=== PATIENT | female | born 1960 | race Caucasian/White ===

== ENCOUNTER 2020-05-28 00:01 | Inpatient (IN) ==
[2020-05-28] MEDS ORDERED: 0.9 % Sodium Chloride 1,000 ML IVC ONE ×2 (00:22→03:41)
[2020-05-28] MEDS ORDERED: *HR* FentaNYL (PF) 100 MCG/2 ML VIAL IVP ONE ×2 (00:22→03:41)
[2020-05-28 01:29] LABS: Bilirubin,Urine Negative (Negative); Blood,Urine Negative (Negative); Clarity,Urine Clear (Clear); Color,Urine Light-Yellow (Yellow); Glucose,Urine (UA) Normal (Normal); Ketones,Urine Negative (Negative); Leukocyte Esterase,Urine Negative (Negative); Nitrite,Urine Negative (Negative); PH,Urine 6.5 pH Units (5.0-8.0); Protein,Urine Negative (Neg-Trace); Specific Gravity,Urine 1.009 (1.010-1.025); Urobilinogen,Urine Normal (Normal)
[2020-05-28 01:30] LABS: Adenovirus Not Detected (Not Detect); Bordetella Pertussis Not Detected (Not Detect); Chlamydophila pneumoniae Not Detected (Not Detect); Coronavirus 229E Not Detected (Not Detect); Coronavirus HKU1 Not Detected (Not Detect); Coronavirus NL63 Not Detected (Not Detect); Coronavirus OC43 Not Detected (Not Detect); Human Metapneumovirus Not Detected (Not Detect); Human Rhinovirus/Enterovirus Not Detected (Not Detect); Influenza A Subtype 2009 H1 Not Detected (Not Detect); Influenza B Not Detected (Not Detect); Mycoplasma pneumoniae Not Detected (Not Detect); Parainfluenza Virus 1 Not Detected (Not Detect); Parainfluenza Virus 2 Not Detected (Not Detect); Parainfluenza Virus 3 Not Detected (Not Detect); Parainfluenza Virus 4 Not Detected (Not Detect); Respiratory Syncytial Virus Not Detected (Not Detect); SARS-CoV-2 Not Detected (Not Detect)
[2020-05-28 01:40] LABS: Amphetamine Screen,Urine Negative ng/mL (Cutoff=1000); Barbiturate Screen,Urine Negative ng/mL (Cutoff=200); Benzodiazepines Screen,Urine Negative ng/mL (Cutoff=200); Cannabinoid Screen,Urine Positive ng/mL (Cutoff = 50); Cocaine Screen,Urine Negative ng/mL (Cutoff= 300); Opiate Screen,Urine Negative ng/mL (Cutoff=300); Phencyclidine Screen,Urine Negative ng/mL (Cutoff=25)
[2020-05-28 02:43] LABS: Hematocrit 40.1 % (35.3-44.9); Mean Corpuscular HGB Conc 33.9 g/dL (31.6-35.5); Mean Corpuscular Hemoglobin 34.3 pg (28.0-33.3); Mean Corpuscular Volume 101.3 fL (83.0-100.0); Mean Platelet Volume 9.6 fL (9.4-12.4); Platelet Count 351 K/mcL (140-400); Red Blood Count 3.96 M/mcL (3.82-4.97); Red Cell Distribution Width 15.1 % (11.5-14.5)
[2020-05-28 02:45] LABS: Hemoglobin 13.6 g/dL (11.5-15.4); White Blood Count 9.4 K/mcL (4.3-11.1)
[2020-05-28 02:53] LABS: Prothrombin Time 11.2 Seconds (9.4-12.1)
[2020-05-28 02:56] LABS: Activated Partial Thrombo Time 26.5 Seconds (26.0-36.0)
[2020-05-28 03:04] LABS: Alanine Aminotransferase 113 Units/L (7-52); Albumin 3.1 g/dL (3.5-5.7); Albumin/Globulin Ratio 1.1 (1.1-2.2); Alkaline Phosphatase 251 Units/L (34-104); Aspartate Amino Transferase 325 Units/L (13-39); BUN/Creatinine Ratio 4 (6-26); Bilirubin,Total 0.6 mg/dL (0.3-1.0); Blood Urea Nitrogen 2 mg/dL (6-20); Calcium 8.2 mg/dL (8.6-10.3); Carbon Dioxide 28 mEq/L (23-29); Chloride 98 mEq/L (98-107); Creatine Kinase 81 Units/L (30-223); Ethanol 203 mg/dL (Less than 10); Globulin 2.7 g/dL (2.4-3.5); Glucose 83 mg/dL (70-105); Osmolality,Calculated 283 (280-300); Potassium 3.7 mEq/L (3.5-5.1); Sodium 139 mEq/L (136-145); Total Protein 5.8 g/dL (6.4-8.9); Troponin I < 0.03 ng/mL (< 0.04); eGFR For African Americans > 60 (> 60); eGFR For Non-African Americans > 60 (> 60)
[2020-05-28 03:07] LABS: Basophils # 0.1 K/mcL (0.0-0.2); Basophils % 0.6 %; Eosinophils % 0.2 %; Immature Granulocytes % 0.2 % (0-4); Lymphocytes % 21.7 %; Monocytes # 0.9 K/mcL (0.0-1.3); Monocytes % 9.5 %; Neutrophils # 6.3 K/mcL (1.6-8.9); Segmented Neutrophils % 67.8 %
[2020-05-28 03:17] LABS: Thyroid Stimulating Hormone 0.996 mcIU/mL (0.340-5.600)
[2020-05-28] MEDS ORDERED: Ketorolac 15 MG/ML VIAL IVP ONE (04:10)
[2020-05-28 04:18] LABS: Hepatitis B Surface Antigen Nonreactive (Nonreactive)
[2020-05-28] MEDS ORDERED: Ondansetron 4 MG/2 ML VIAL IVP PRN (04:21)
[2020-05-28] MEDS ORDERED: Naloxone 0.4 MG/ML INJ IVP PRN (04:21)
[2020-05-28 04:23] LABS: ABG Base Excess 2 mEq/L (-2 to 3); ABG HCO3 27 mEq/L (21-27); ABG Oxygen Saturation 95 % (95-98); ABG PCO2 40 mmHg (35-45); ABG PH 7.44 pH Units (7.32-7.45); ABG PO2 71 mmHg (85-104); ABG TCO2 28 mEq/L (20-26)
[2020-05-28 04:46] LABS: Hepatitis C Virus Antibody Nonreactive (Nonreactive)
[2020-05-28 04:47] LABS: Hepatitis B Core IgM Nonreactive (Nonreactive)
[2020-05-28 04:48] LABS: Hepatitis A Antibody IgM Nonreactive (Nonreactive)
[2020-05-28 04:58] LABS: % Iron Saturation 34 % (15-50); C-Reactive Protein < 10 mg/L (Less than 10); Iron 96 mcg/dL (50-170); Transferrin 203 mg/dL (203-362)
[2020-05-28 05:13] LABS: Ferritin 194 ng/mL (10-120)
[2020-05-28 05:17] LABS: Complement C3 94 mg/dL (87-200)
[2020-05-28] MEDS ORDERED: *HR* LORazepam 2 MG/ML VIAL IVP PRN ×3 (05:19→09:29)
[2020-05-28 05:20] LABS: Procalcitonin 0.73 ng/mL (0.00-0.15)
[2020-05-28 05:51] LABS: Folate 3.6 ng/mL (3.0-16.0); Vitamin B12 1328 pg/mL (250-1100)
[2020-05-28] MEDS: 0.9 % Sodium Chloride 1,000 ML IVC SCH ×2 (06:28→16:10)
[2020-05-28] MEDS ORDERED: MethylPREDNISolone 40 MG/ML VIAL IVP SCH ×2 (08:00→10:00)
[2020-05-28] MEDS ORDERED: Azithromycin 500 MG in 0.9 % Sodium Chloride 250 ML IVPB SCH (09:00)
[2020-05-28] MEDS ORDERED: Ipratropium/Albuterol Neb 3 ML IH PRN (09:30)
[2020-05-28] MEDS: *HR* HYDROcodone/Acet 5/325 mg TABLET PO PRN ×3 (10:00→20:32)
[2020-05-28] MEDS ORDERED: levoFLOXacin 750 MG/150 ML 750 MG/150 ML BAG IVPB SCH (10:00)
[2020-05-28] MEDS: *HR* Heparin 5,000 UNIT/ML VIAL SQ SCH ×2 (13:10→20:36)
[2020-05-28] MEDS ORDERED: Multivit/Ca/Min/Fe/FA 1 TAB TABLET PO SCH (18:00)
[2020-05-28] MEDS ORDERED: Thiamine (B-1) 100 MG, Folic Acid 1 MG in 0.9 % Sodium Chloride 500 ML IVPB SCH (18:00)
[2020-05-29] MEDS: *HR* HYDROcodone/Acet 5/325 mg TABLET PO PRN ×3 (00:30→08:48)
[2020-05-29 01:50] LABS: Basophils % 0.2 %; Eosinophils % 0.1 %; Hematocrit 36.1 % (35.3-44.9); Immature Granulocytes % 0.3 % (0-4); Lymphocytes # 1.9 K/mcL (0.6-4.6); Lymphocytes % 13.5 %; Mean Corpuscular HGB Conc 32.7 g/dL (31.6-35.5); Mean Corpuscular Hemoglobin 33.6 pg (28.0-33.3); Mean Corpuscular Volume 102.8 fL (83.0-100.0); Mean Platelet Volume 10.4 fL (9.4-12.4); Monocytes % 7.3 %; Platelet Count 299 K/mcL (140-400); Red Blood Count 3.51 M/mcL (3.82-4.97); Red Cell Distribution Width 14.9 % (11.5-14.5); Segmented Neutrophils % 78.6 %
[2020-05-29 01:53] LABS: Hemoglobin 11.8 g/dL (11.5-15.4); Neutrophils # 11.2 K/mcL (1.6-8.9); White Blood Count 14.2 K/mcL (4.3-11.1)
[2020-05-29 02:17] LABS: Alanine Aminotransferase 79 Units/L (7-52); Albumin 2.6 g/dL (3.5-5.7); Albumin/Globulin Ratio 1.1 (1.1-2.2); Alkaline Phosphatase 213 Units/L (34-104); Aspartate Amino Transferase 175 Units/L (13-39); BUN/Creatinine Ratio 10 (6-26); Bilirubin,Total 1.4 mg/dL (0.3-1.0); Blood Urea Nitrogen 4 mg/dL (6-20); Calcium 7.4 mg/dL (8.6-10.3); Carbon Dioxide 25 mEq/L (23-29); Chloride 102 mEq/L (98-107); Chol/HDL Ratio 1.7 (0-4.9); Cholesterol 191 mg/dL (< 200); Globulin 2.4 g/dL (2.4-3.5); Glucose 81 mg/dL (70-105); HDL Cholesterol 115 mg/dL (40-59); LDL Cholesterol,Calculated 64 mg/dL (< 100); Magnesium 1.1 mg/dL (1.6-2.6); Osmolality,Calculated 278 (280-300); Phosphorous 2.5 mg/dL (2.7-4.5); Potassium 3.7 mEq/L (3.5-5.1); Sodium 136 mEq/L (136-145); Triglycerides 58 mg/dL (< 150); eGFR For African Americans > 60 (> 60); eGFR For Non-African Americans > 60 (> 60)
[2020-05-29] MEDS: *HR* Heparin 5,000 UNIT/ML VIAL SQ SCH (05:53)
[2020-05-29 06:23] VITALS: BP 152/82
[2020-05-30 09:25] LABS: ANA IgG by ELISA NONE DETECTED (None Detected)
== END 2020-05-29 10:21 | disposition home or self-care (01) ==
LOC: 3NENU 00:01 → EMEROOARM 00:01 → 3NENU 05:58
PROVIDERS: ADMIT Internal Medicine; ATTEND Internal Medicine

== ENCOUNTER 2020-09-03 12:37 | Inpatient (IN) ==
[2020-09-03] MEDS ORDERED: Morphine Sulfate 2 MG/ML SYRINGE IVP ONE ×2 (13:25→17:44)
[2020-09-03] MEDS ORDERED: Ondansetron 4 MG/2 ML VIAL IVP ONE (13:25)
[2020-09-03 14:09] LABS: Basophils % 0.2 %; Hematocrit 43.5 % (35.3-44.9); Immature Granulocytes % 0.2 % (0-4); Lymphocytes # 0.9 K/mcL (0.6-4.6); Lymphocytes % 6.3 %; Mean Corpuscular HGB Conc 32.2 g/dL (31.6-35.5); Mean Corpuscular Hemoglobin 36.5 pg (28.0-33.3); Mean Corpuscular Volume 113.3 fL (83.0-100.0); Mean Platelet Volume 9.6 fL (9.4-12.4); Monocytes # 1.1 K/mcL (0.0-1.3); Monocytes % 8.1 %; Neutrophils # 11.5 K/mcL (1.6-8.9); Platelet Count 726 K/mcL (140-400); Red Blood Count 3.84 M/mcL (3.82-4.97); Red Cell Distribution Width 13.9 % (11.5-14.5); Segmented Neutrophils % 85.2 %; White Blood Count 13.5 K/mcL (4.3-11.1)
[2020-09-03 14:37] LABS: Macrocytosis Present (Not Present); Platelet Estimate Marked Increase (Normal)
[2020-09-03] MEDS ORDERED: 0.9 % Sodium Chloride 1,000 ML IVC ONE ×4 (14:38→22:22)
[2020-09-03] MEDS ORDERED: Isovue-370 500 ML BOTTLE IVP ONE (16:17)
[2020-09-03 16:23] LABS: Bacteria,Urine Few per hpf (None-Few); Bilirubin,Urine Negative (Negative); Blood,Urine Negative (Negative); Calcium Oxalate Crystals,Urine Present; Clarity,Urine Turbid (Clear); Color,Urine Yellow (Yellow); Glucose,Urine (UA) Normal (Normal); Hyaline Casts,Urine Many per lpf (None Seen); Ketones,Urine Negative (Negative); Leukocyte Esterase,Urine Small (Negative); Mucus,Urine Few per lpf (None-Few); Nitrite,Urine Negative (Negative); Protein,Urine 50 mg/dL (Neg-Trace); Renal Epithelial Cells,Urine Few per hpf (None-Few); Specific Gravity,Urine > 1.030 (1.010-1.025); Squamous Epithelial Cell,Urine Moderate per hpf (None-Few); Transitional Epi Cells,Urine Few per hpf (None-Few); Urobilinogen,Urine Normal (Normal); WBC,Urine 15-30 per hpf (0-3)
[2020-09-03 16:26] LABS: Alanine Aminotransferase 20 Units/L (7-52); Albumin 2.2 g/dL (3.5-5.7); Albumin/Globulin Ratio 0.8 (1.1-2.2); Alkaline Phosphatase 277 Units/L (34-104); Aspartate Amino Transferase 41 Units/L (13-39); BUN/Creatinine Ratio 9 (6-26); Bilirubin,Direct 0.5 mg/dL (0.0-0.2); Bilirubin,Indirect 0.5 mg/dL (0.0-1.0); Blood Urea Nitrogen 5 mg/dL (6-20); Calcium 9.2 mg/dL (8.6-10.3); Carbon Dioxide 27 mEq/L (23-29); Chloride 93 mEq/L (98-107); Globulin 2.8 g/dL (2.4-3.5); Glucose 85 mg/dL (70-105); Lipase 18 Units/L (11-82); Osmolality,Calculated 267 (280-300); Sodium 130 mEq/L (136-145); eGFR For African Americans > 60 (> 60); eGFR For Non-African Americans > 60 (> 60)
[2020-09-03 16:34] LABS: Troponin I < 0.03 ng/mL (< 0.04)
[2020-09-03] MEDS ORDERED: *HR* FentaNYL (PF) 100 MCG/2 ML VIAL IVP ONE (16:38)
[2020-09-03] MEDS ORDERED: MetroNIDAZOLE 500 MG/100 ML 500 MG/100 ML BAG IVPB ONE (17:49)
[2020-09-03] MEDS ORDERED: Cefepime HCl 2,000 MG in 0.9 % Sodium Chloride Mini Bag 100 ML IVPB ONE (17:49)
[2020-09-03] MEDS ORDERED: Ondansetron 4 MG/2 ML VIAL IVP PRN ×4 (18:15→22:22)
[2020-09-03] MEDS ORDERED: 0.9 % Sodium Chloride 1,000 ML IVC SCH (18:15)
[2020-09-03] MEDS ORDERED: Naloxone 0.4 MG/ML INJ IVP PRN ×2 (18:15→22:22)
[2020-09-03] MEDS ORDERED: *HR* Labetalol 20 MG/4 ML SYRINGE IVP PRN ×2 (18:36→22:22)
[2020-09-03] MEDS ORDERED: Ipratropium/Albuterol Neb 3 ML IH PRN ×2 (18:37→22:22)
[2020-09-03] MEDS ORDERED: *HR* HYDROmorphone (PF) 1 MG/ML SYRINGE IVP PRN ×2 (18:38→22:22)
[2020-09-03] MEDS ORDERED: *HR* FentaNYL (PF) 100 MCG/2 ML VIAL IVP PRN ×2 (18:38→22:22)
[2020-09-03] MEDS ORDERED: *HR* Midazolam HCl 2 MG/2 ML VIAL IVP PRN ×2 (18:38→22:22)
[2020-09-03] MEDS ORDERED: *HR* Propofol 200 MG/20 ML VIAL IVP ONE (18:43)
[2020-09-03] MEDS ORDERED: *HR* FentaNYL (PF) 100 MCG/2 ML VIAL ONE ×2 (19:01→21:46)
[2020-09-03] MEDS ORDERED: Morphine Sulfate 2 MG/ML SYRINGE IVP PRN ×2 (19:21→20:55)
[2020-09-03] MEDS ORDERED: *HR* OxyCODONE Immed Rel 5 MG TABLET PO PRN ×2 (19:21→22:22)
[2020-09-03] MEDS ORDERED: Promethazine 6.25 MG in Water for inj. (sterile) 20 ML IVPB PRN ×2 (19:21→22:22)
[2020-09-03] MEDS ORDERED: *HR* Labetalol 20 MG/4 ML SYRINGE IVP ONE (21:47)
[2020-09-03] MEDS: 0.9 % Sodium Chloride 1,000 ML IVC SCH (23:55)
[2020-09-04] MEDS ORDERED: MetroNIDAZOLE 500 MG/100 ML 500 MG/100 ML BAG IVPB SCH
[2020-09-04] MEDS ORDERED: Cefepime HCl 2,000 MG in 0.9 % Sodium Chloride Mini Bag 100 ML IVPB SCH
[2020-09-04] MEDS: MetroNIDAZOLE 500 MG/100 ML 500 MG/100 ML BAG IVPB SCH ×4 (02:10→23:24)
[2020-09-04] MEDS: Cefepime HCl 2,000 MG in 0.9 % Sodium Chloride Mini Bag 100 ML IVPB SCH ×3 (02:28→18:27)
[2020-09-04 02:47] LABS: Basophils % 0.4 %; Hematocrit 35.7 % (35.3-44.9); Immature Granulocytes % 0.5 % (0-4); Lymphocytes # 0.4 K/mcL (0.6-4.6); Lymphocytes % 4.5 %; Mean Corpuscular HGB Conc 31.1 g/dL (31.6-35.5); Mean Corpuscular Hemoglobin 36.6 pg (28.0-33.3); Mean Corpuscular Volume 117.8 fL (83.0-100.0); Mean Platelet Volume 9.7 fL (9.4-12.4); Monocytes # 0.3 K/mcL (0.0-1.3); Monocytes % 3.4 %; Neutrophils # 7.7 K/mcL (1.6-8.9); Platelet Count 465 K/mcL (140-400); Red Blood Count 3.03 M/mcL (3.82-4.97); Red Cell Distribution Width 14.1 % (11.5-14.5); Segmented Neutrophils % 91.2 %; White Blood Count 8.4 K/mcL (4.3-11.1)
[2020-09-04 03:02] LABS: Hemoglobin 11.1 g/dL (11.5-15.4)
[2020-09-04 03:25] LABS: Anisocytosis 1+ (Not Present); Platelet Estimate Normal (Normal)
[2020-09-04] MEDS ORDERED: Acetaminophen IV 500 MG/50 ML BAG IVPB ONE (03:32)
[2020-09-04] MEDS: *HR* Heparin 5,000 UNIT/ML VIAL SQ SCH ×2 (05:39→17:43)
[2020-09-04] MEDS ORDERED: *HR* Heparin 5,000 UNIT/ML VIAL SQ SCH (06:00)
[2020-09-04] MEDS ORDERED: Morphine Sulfate 2 MG/ML SYRINGE IVP ONE (06:01)
[2020-09-04] MEDS ORDERED: *HR* Dextrose 50 % in Water (Vial) 50 ML VIAL IVP PRN (06:03)
[2020-09-04] MEDS ORDERED: D5% in Water 1,000 ML IVC PRN (06:03)
[2020-09-04] MEDS ORDERED: Dextrose Gel 15 GM/37.5 ML TUBE PO PRN (06:03)
[2020-09-04] MEDS: Pantoprazole 40 MG VIAL IVP SCH ×2 (06:29→17:42)
[2020-09-04 06:41] LABS: Hematocrit 33.8 % (35.3-44.9); Hemoglobin 10.9 g/dL (11.5-15.4)
[2020-09-04 07:00] LABS: Alanine Aminotransferase 38 Units/L (7-52); Albumin 1.9 g/dL (3.5-5.7); Albumin/Globulin Ratio 0.8 (1.1-2.2); Alkaline Phosphatase 176 Units/L (34-104); Aspartate Amino Transferase 248 Units/L (13-39); BUN/Creatinine Ratio 15 (6-26); Bilirubin,Total 0.8 mg/dL (0.3-1.0); Blood Urea Nitrogen 8 mg/dL (6-20); Calcium 7.7 mg/dL (8.6-10.3); Carbon Dioxide 24 mEq/L (23-29); Chloride 103 mEq/L (98-107); Globulin 2.3 g/dL (2.4-3.5); Glucose 60 mg/dL (70-105); Osmolality,Calculated 274 (280-300); Potassium 4.4 mEq/L (3.5-5.1); Sodium 134 mEq/L (136-145); Total Protein 4.2 g/dL (6.4-8.9); eGFR For African Americans > 60 (> 60); eGFR For Non-African Americans > 60 (> 60)
[2020-09-04] MEDS ORDERED: *HR* LORazepam 2 MG/ML VIAL IVP PRN (07:47)
[2020-09-04] MEDS: Fluconazole 200 MG/100 ML 200 MG/100 ML BAG IVPB SCH (08:05)
[2020-09-04] MEDS ORDERED: *HR* Metoprolol 5 MG/5 ML VIAL IVP ONE (08:14)
[2020-09-04] MEDS ORDERED: Fluconazole 200 MG/100 ML 200 MG/100 ML BAG IVPB SCH (09:00)
[2020-09-04] MEDS: Albumin 25% 25gram/100mL 25 GM/100 ML IV.SOLN IVPB SCH ×2 (09:33→17:37)
[2020-09-04] MEDS: Thiamine (B-1) 100 MG, Folic Acid 1 MG, MVI, adult with vitamin K 10 ML in 0.9 % Sodi... IVPB SCH (11:11)
[2020-09-04 11:46] LABS: Hematocrit 29.8 % (35.3-44.9); Hemoglobin 9.5 g/dL (11.5-15.4)
[2020-09-04] MEDS: 0.9 % Sodium Chloride 1,000 ML IVC SCH (13:29)
[2020-09-04] MEDS: Dextrose Gel 15 GM/37.5 ML TUBE PO PRN ×2 (17:14→23:19)
[2020-09-05] MEDS: 0.9 % Sodium Chloride 1,000 ML IVC SCH ×2 (01:57→16:08)
[2020-09-05] MEDS: Cefepime HCl 2,000 MG in 0.9 % Sodium Chloride Mini Bag 100 ML IVPB SCH ×3 (02:02→18:31)
[2020-09-05] MEDS: Dextrose Gel 15 GM/37.5 ML TUBE PO PRN ×2 (05:38→06:54)
[2020-09-05] MEDS: *HR* Heparin 5,000 UNIT/ML VIAL SQ SCH ×2 (05:41→18:31)
[2020-09-05] MEDS: Pantoprazole 40 MG VIAL IVP SCH ×2 (05:42→18:31)
[2020-09-05] MEDS: *HR* LORazepam 2 MG/ML VIAL IVP PRN ×4 (07:16→23:17)
[2020-09-05] MEDS: Fluconazole 200 MG/100 ML 200 MG/100 ML BAG IVPB SCH (08:26)
[2020-09-05] MEDS: MetroNIDAZOLE 500 MG/100 ML 500 MG/100 ML BAG IVPB SCH ×2 (08:27→16:06)
[2020-09-05] MEDS: *HR* Metoprolol 5 MG/5 ML VIAL IVP SCH ×2 (10:24→18:32)
[2020-09-05 15:42] LABS: Hematocrit 31.1 % (35.3-44.9); Hemoglobin 9.7 g/dL (11.5-15.4); Immature Granulocytes % 1.1 % (0-4); Lymphocytes # 1.2 K/mcL (0.6-4.6); Lymphocytes % 5.8 %; Mean Corpuscular HGB Conc 31.2 g/dL (31.6-35.5); Mean Corpuscular Hemoglobin 37.5 pg (28.0-33.3); Mean Corpuscular Volume 120.1 fL (83.0-100.0); Mean Platelet Volume 9.4 fL (9.4-12.4); Monocytes % 2.2 %; Platelet Count 428 K/mcL (140-400); Red Blood Count 2.59 M/mcL (3.82-4.97); Red Cell Distribution Width 14.6 % (11.5-14.5); Segmented Neutrophils % 90.9 %
[2020-09-05 15:56] LABS: Monocytes # 0.5 K/mcL (0.0-1.3); Neutrophils # 18.5 K/mcL (1.6-8.9); White Blood Count 20.3 K/mcL (4.3-11.1)
[2020-09-05 15:59] LABS: Alanine Aminotransferase 28 Units/L (7-52); Albumin 2.9 g/dL (3.5-5.7); Albumin/Globulin Ratio 1.5 (1.1-2.2); Alkaline Phosphatase 127 Units/L (34-104); Aspartate Amino Transferase 131 Units/L (13-39); BUN/Creatinine Ratio 27 (6-26); Bilirubin,Total 0.8 mg/dL (0.3-1.0); Blood Urea Nitrogen 14 mg/dL (6-20); Calcium 7.6 mg/dL (8.6-10.3); Carbon Dioxide 23 mEq/L (23-29); Chloride 109 mEq/L (98-107); Globulin 1.9 g/dL (2.4-3.5); Glucose 58 mg/dL (70-105); Osmolality,Calculated 286 (280-300); Potassium 3.5 mEq/L (3.5-5.1); Sodium 139 mEq/L (136-145); Total Protein 4.8 g/dL (6.4-8.9); eGFR For African Americans > 60 (> 60); eGFR For Non-African Americans > 60 (> 60)
[2020-09-05 16:02] LABS: Magnesium 2.4 mg/dL (1.6-2.6); Phosphorous 2.9 mg/dL (2.7-4.5)
[2020-09-05 16:13] LABS: Thyroid Stimulating Hormone 0.717 mcIU/mL (0.340-5.600)
[2020-09-05 16:41] LABS: Hypochromasia Present (Not Present); Macrocytosis Present (Not Present); Platelet Estimate Normal (Normal)
[2020-09-05] MEDS: Thiamine (B-1) 100 MG, Folic Acid 1 MG, MVI, adult with vitamin K 10 ML in 0.9 % Sodi... IVPB SCH (19:15)
[2020-09-06] MEDS: *HR* Metoprolol 5 MG/5 ML VIAL IVP SCH ×6 (02:37→23:23)
[2020-09-06] MEDS: MetroNIDAZOLE 500 MG/100 ML 500 MG/100 ML BAG IVPB SCH ×4 (02:38→23:25)
[2020-09-06] MEDS: Cefepime HCl 2,000 MG in 0.9 % Sodium Chloride Mini Bag 100 ML IVPB SCH ×3 (02:38→17:58)
[2020-09-06] MEDS: 0.9 % Sodium Chloride 1,000 ML IVC SCH (03:07)
[2020-09-06] MEDS: *HR* Heparin 5,000 UNIT/ML VIAL SQ SCH ×2 (05:08→17:59)
[2020-09-06] MEDS: Pantoprazole 40 MG VIAL IVP SCH ×3 (05:13→17:58)
[2020-09-06] MEDS: Dextrose Gel 15 GM/37.5 ML TUBE PO PRN (05:46)
[2020-09-06] MEDS: Fluconazole 200 MG/100 ML 200 MG/100 ML BAG IVPB SCH (08:03)
[2020-09-06] MEDS ORDERED: metOLazone 5 MG TABLET PO SCH (09:00)
[2020-09-06] MEDS: D5% in Water 1,000 ML IVC SCH ×2 (10:03→23:48)
[2020-09-06] MEDS: Albumin 25% 25gram/100mL 25 GM/100 ML IV.SOLN IVPB ONE (12:50)
[2020-09-06 14:31] LABS: VBG HCO3 19 mEq/L (21-27); VBG PCO2 67 mmHg (41-51); VBG PH 7.07 pH Units (7.32-7.42); VBG PO2 94 mmHg (25-50)
[2020-09-06 15:06] LABS: ABG Base Excess -6 mEq/L (-2 to 3); ABG HCO3 24 mEq/L (21-27); ABG Oxygen Saturation 95 % (95-98); ABG PCO2 72 mmHg (35-45); ABG PH 7.13 pH Units (7.32-7.45); ABG PO2 101 mmHg (85-104); ABG TCO2 26 mEq/L (20-26)
[2020-09-06] MEDS: Thiamine (B-1) 500 MG in 0.9 % Sodium Chloride 50 ML IVPB SCH ×2 (15:18→20:00)
[2020-09-06 16:05] LABS: Protein/Creatinine Ratio,Urine 1.97 mg/mg (0.00-0.20)
[2020-09-06 16:09] LABS: Alanine Aminotransferase 20 Units/L (7-52); Albumin 2.9 g/dL (3.5-5.7); Albumin/Globulin Ratio 1.7 (1.1-2.2); Alkaline Phosphatase 110 Units/L (34-104); Aspartate Amino Transferase 74 Units/L (13-39); BUN/Creatinine Ratio 33 (6-26); Bilirubin,Total 0.6 mg/dL (0.3-1.0); Blood Urea Nitrogen 17 mg/dL (6-20); Calcium 7.3 mg/dL (8.6-10.3); Carbon Dioxide 24 mEq/L (23-29); Chloride 110 mEq/L (98-107); Globulin 1.7 g/dL (2.4-3.5); Glucose 121 mg/dL (70-105); Osmolality,Calculated 295 (280-300); Potassium 3.5 mEq/L (3.5-5.1); Sodium 141 mEq/L (136-145); Total Protein 4.6 g/dL (6.4-8.9); eGFR For African Americans > 60 (> 60); eGFR For Non-African Americans > 60 (> 60)
[2020-09-06 16:13] LABS: Hematocrit 28.4 % (35.3-44.9); Hemoglobin 8.2 g/dL (11.5-15.4); Immature Platelets 3.2 % (1.1-6.1); Mean Corpuscular HGB Conc 28.9 g/dL (31.6-35.5); Mean Corpuscular Hemoglobin 37.4 pg (28.0-33.3); Mean Corpuscular Volume 129.7 fL (83.0-100.0); Mean Platelet Volume 9.6 fL (9.4-12.4); Platelet Count 384 K/mcL (140-400); Red Blood Count 2.19 M/mcL (3.82-4.97); Red Cell Distribution Width 14.1 % (11.5-14.5); White Blood Count 17.2 K/mcL (4.3-11.1)
[2020-09-06 16:31] LABS: Microcytosis Present (Not Present); Platelet Estimate Normal (Normal)
[2020-09-06 20:20] LABS: ABG Base Excess -3 mEq/L (-2 to 3); ABG HCO3 25 mEq/L (21-27); ABG Oxygen Saturation 94 % (95-98); ABG PCO2 64 mmHg (35-45); ABG PO2 89 mmHg (85-104); ABG TCO2 27 mEq/L (20-26); Blood Gas Pressure Support 8 cm H2O
[2020-09-06 20:38] LABS: Lymphocytes # 1.6 K/mcL (0.6-4.6); Lymphocytes % 9.3 %; Monocytes # 0.5 K/mcL (0.0-1.3); Neutrophils # 15.1 K/mcL (1.6-8.9); Segmented Neutrophils % 87.7 %
[2020-09-06 20:39] LABS: Basophils % 0.1 %; Immature Granulocytes % 0.9 % (0-4)
[2020-09-06 23:47] LABS: ABG Base Excess -3 mEq/L (-2 to 3); ABG HCO3 25 mEq/L (21-27); ABG Oxygen Saturation 94 % (95-98); ABG PCO2 58 mmHg (35-45); ABG PH 7.24 pH Units (7.32-7.45); ABG PO2 85 mmHg (85-104); ABG TCO2 27 mEq/L (20-26)
[2020-09-07] MEDS: 0.9 % Sodium Chloride 1,000 ML IVC SCH (00:11)
[2020-09-07] MEDS ORDERED: D5% in Water 1,000 ML IVC SCH (00:30)
[2020-09-07] MEDS: Cefepime HCl 2,000 MG in 0.9 % Sodium Chloride Mini Bag 100 ML IVPB SCH ×3 (01:30→16:54)
[2020-09-07 03:56] LABS: Hematocrit 27.3 % (35.3-44.9); Mean Corpuscular HGB Conc 29.3 g/dL (31.6-35.5); Mean Corpuscular Hemoglobin 36.5 pg (28.0-33.3); Mean Corpuscular Volume 124.7 fL (83.0-100.0); Mean Platelet Volume 9.5 fL (9.4-12.4); Platelet Count 261 K/mcL (140-400); Red Blood Count 2.19 M/mcL (3.82-4.97); Red Cell Distribution Width 13.6 % (11.5-14.5); White Blood Count 13.7 K/mcL (4.3-11.1)
[2020-09-07 04:06] LABS: Iron 31 mcg/dL (50-170); Transferrin < 75 mg/dL (203-362)
[2020-09-07 04:12] LABS: BUN/Creatinine Ratio 32 (6-26); Blood Urea Nitrogen 17 mg/dL (6-20); Carbon Dioxide 26 mEq/L (23-29); Chloride 103 mEq/L (98-107); Glucose 391 mg/dL (70-105); Osmolality,Calculated 288 (280-300); Potassium 3.1 mEq/L (3.5-5.1); Sodium 130 mEq/L (136-145); eGFR For African Americans > 60 (> 60); eGFR For Non-African Americans > 60 (> 60)
[2020-09-07 04:24] LABS: Ferritin 220 ng/mL (10-120)
[2020-09-07 04:35] LABS: Folate > 22.3 ng/mL (3.0-16.0)
[2020-09-07 05:11] LABS: Vitamin B12 > 1500 pg/mL (250-1100)
[2020-09-07] MEDS: *HR* Metoprolol 5 MG/5 ML VIAL IVP SCH ×3 (05:20→23:08)
[2020-09-07] MEDS: Pantoprazole 40 MG VIAL IVP SCH ×2 (05:20→16:54)
[2020-09-07] MEDS: *HR* Heparin 5,000 UNIT/ML VIAL SQ SCH ×2 (05:21→16:54)
[2020-09-07] MEDS ORDERED: Potassium Chloride 40 MEQ, Lidocaine 1% 2 ML in 0.9 % Sodium Chloride 500 ML IVPB ONE (07:48)
[2020-09-07] MEDS: Fluconazole 200 MG/100 ML 200 MG/100 ML BAG IVPB SCH (07:53)
[2020-09-07] MEDS: MetroNIDAZOLE 500 MG/100 ML 500 MG/100 ML BAG IVPB SCH ×3 (07:53→23:08)
[2020-09-07] MEDS: Thiamine (B-1) 500 MG in 0.9 % Sodium Chloride 50 ML IVPB SCH ×3 (07:54→20:15)
[2020-09-07] MEDS ORDERED: Bumetanide 1 MG/4 ML VIAL IVP ONE (11:28)
[2020-09-07] MEDS: Acetaminophen IV 500 MG/50 ML BAG IVPB PRN (11:40)
[2020-09-07] MEDS ORDERED: Albumin 25% 25gram/100mL 25 GM/100 ML IV.SOLN IVPB ONE (12:51)
[2020-09-07] MEDS ORDERED: Haloperidol Lactate 5 MG/ML VIAL IVP ONE (13:48)
[2020-09-07 14:39] LABS: ABG Base Excess 0 mEq/L (-2 to 3); ABG HCO3 28 mEq/L (21-27); ABG Oxygen Saturation 93 % (95-98); ABG PCO2 66 mmHg (35-45); ABG PH 7.24 pH Units (7.32-7.45); ABG PO2 82 mmHg (85-104); ABG TCO2 30 mEq/L (20-26); Blood Gas Modality avaps; Blood Gas VT 450 cc
[2020-09-07] MEDS: *HR* LORazepam 2 MG/ML VIAL IVP PRN (16:00)
[2020-09-07 20:44] LABS: ABG Base Excess 0 mEq/L (-2 to 3); ABG HCO3 27 mEq/L (21-27); ABG Oxygen Saturation 94 % (95-98); ABG PCO2 57 mmHg (35-45); ABG PH 7.29 pH Units (7.32-7.45); ABG PO2 83 mmHg (85-104); ABG TCO2 29 mEq/L (20-26); Blood Gas VT 500 cc
[2020-09-08] MEDS ORDERED: *HR* Metoprolol 5 MG/5 ML VIAL IVP SCH
[2020-09-08] MEDS: Cefepime HCl 2,000 MG in 0.9 % Sodium Chloride Mini Bag 100 ML IVPB SCH ×2 (01:14→11:41)
[2020-09-08] MEDS: Acetaminophen IV 500 MG/50 ML BAG IVPB PRN (02:43)
[2020-09-08 03:24] LABS: Basophils % 0.1 %; Eosinophils # 0.1 K/mcL (0.0-0.6); Eosinophils % 0.4 %; Hematocrit 26.6 % (35.3-44.9); Hemoglobin 7.8 g/dL (11.5-15.4); Immature Granulocytes % 0.8 % (0-4); Lymphocytes % 6.6 %; Mean Corpuscular HGB Conc 29.3 g/dL (31.6-35.5); Mean Corpuscular Hemoglobin 37.1 pg (28.0-33.3); Mean Corpuscular Volume 126.7 fL (83.0-100.0); Mean Platelet Volume 9.9 fL (9.4-12.4); Monocytes % 6.8 %; Platelet Count 178 K/mcL (140-400); Red Cell Distribution Width 13.8 % (11.5-14.5); Segmented Neutrophils % 85.3 %; White Blood Count 15.1 K/mcL (4.3-11.1)
[2020-09-08 03:34] LABS: Neutrophils # 12.9 K/mcL (1.6-8.9)
[2020-09-08 03:35] LABS: Macrocytosis Present (Not Present); Platelet Estimate Normal (Normal)
[2020-09-08 03:42] LABS: Magnesium 1.7 mg/dL (1.6-2.6); Phosphorous 1.3 mg/dL (2.7-4.5)
[2020-09-08 03:44] LABS: Alanine Aminotransferase 15 Units/L (7-52); Albumin 2.7 g/dL (3.5-5.7); Albumin/Globulin Ratio 2.1 (1.1-2.2); Alkaline Phosphatase 84 Units/L (34-104); Aspartate Amino Transferase 46 Units/L (13-39); BUN/Creatinine Ratio 33 (6-26); Bilirubin,Total 0.9 mg/dL (0.3-1.0); Blood Urea Nitrogen 16 mg/dL (6-20); Calcium 6.8 mg/dL (8.6-10.3); Carbon Dioxide 22 mEq/L (23-29); Chloride 96 mEq/L (98-107); Globulin 1.3 g/dL (2.4-3.5); Glucose 97 mg/dL (70-105); Osmolality,Calculated 257 (280-300); Potassium 3.2 mEq/L (3.5-5.1); Sodium 123 mEq/L (136-145); eGFR For African Americans > 60 (> 60); eGFR For Non-African Americans > 60 (> 60)
[2020-09-08 03:52] LABS: VBG HCO3 23 mEq/L (21-27); VBG PCO2 72 mmHg (41-51); VBG PO2 146 mmHg (25-50)
[2020-09-08] MEDS: Pantoprazole 40 MG VIAL IVP SCH ×2 (05:06→18:11)
[2020-09-08] MEDS: *HR* Metoprolol 5 MG/5 ML VIAL IVP SCH ×4 (05:06→23:58)
[2020-09-08] MEDS: *HR* Heparin 5,000 UNIT/ML VIAL SQ SCH ×2 (05:06→17:26)
[2020-09-08] MEDS ORDERED: Potassium Phosphate 44 MEQ in 0.9 % Sodium Chloride 250 ML IVPB ONE (07:36)
[2020-09-08] MEDS ORDERED: Albumin 25% 25gram/100mL 25 GM/100 ML IV.SOLN IVPB ONE (07:43)
[2020-09-08] MEDS: Fluconazole 200 MG/100 ML 200 MG/100 ML BAG IVPB SCH (07:47)
[2020-09-08] MEDS: Thiamine (B-1) 500 MG in 0.9 % Sodium Chloride 50 ML IVPB SCH ×3 (07:47→21:06)
[2020-09-08] MEDS: MetroNIDAZOLE 500 MG/100 ML 500 MG/100 ML BAG IVPB SCH ×3 (07:47→23:58)
[2020-09-08 08:11] LABS: ABG Base Excess -2 mEq/L (-2 to 3); ABG HCO3 25 mEq/L (21-27); ABG Oxygen Saturation 95 % (95-98); ABG PCO2 57 mmHg (35-45); ABG PH 7.26 pH Units (7.32-7.45); ABG PO2 91 mmHg (85-104); ABG TCO2 27 mEq/L (20-26); Blood Gas VT 500 cc
[2020-09-08] MEDS: *HR* LORazepam 2 MG/ML VIAL IVP PRN (09:26)
[2020-09-08] MEDS: Insulin LISPRO 300 UNITS/3 ML VIAL SUBQ SCH ×3 (11:43→23:58)
[2020-09-08] MEDS: Albumin 25% 25gram/100mL 25 GM/100 ML IV.SOLN IVPB ONE (11:44)
[2020-09-08] MEDS ORDERED: *HR* Etomidate 20 MG/10 ML AMPUL IVP ONE (11:50)
[2020-09-08] MEDS ORDERED: *HR* Midazolam HCl 2 MG/2 ML VIAL IVP ONE (11:50)
[2020-09-08] MEDS ORDERED: *HR* Succinylcholine 200 MG/10 ML VIAL IVP ONE (11:50)
[2020-09-08] MEDS ORDERED: D10% in Water 500 ML IVC PRN (12:50)
[2020-09-08 13:43] LABS: ABG Base Excess -5 mEq/L (-2 to 3); ABG HCO3 24 mEq/L (21-27); ABG Oxygen Saturation 90 % (95-98); ABG PCO2 65 mmHg (35-45); ABG PH 7.17 pH Units (7.32-7.45); ABG PO2 74 mmHg (85-104); ABG TCO2 26 mEq/L (20-26); Blood Gas VT 500 cc
[2020-09-08] MEDS ORDERED: Bumetanide 1 MG/4 ML VIAL IVP SCH ×2 (14:00→17:00)
[2020-09-08] MEDS ORDERED: Perflutren Lipid Microsphere 1.3 ML in 0.9 % Sodium Chloride 8.7 ML IVP PRN (14:48)
[2020-09-08] MEDS: Dexmedetomidine HCl 400 MCG/100 ML MLS IVC SCH (15:24)
[2020-09-08] MEDS: FentaNYL (PF) 1,000 MCG/100 ML IV.SOLN IVC SCH (15:41)
[2020-09-08] MEDS: Ipratropium/Albuterol Neb 3 ML IH SCH ×3 (15:45→23:52)
[2020-09-08 16:01] LABS: Total Volume 24 Hour,Urine 0.88 Liters (0.60-1.60)
[2020-09-08 16:16] LABS: Creatinine 24 Hour,Urine 282 mg/day (600-1800); Creatinine,Urine 32 mg/dL; Sodium, Urine < 10.0 mEq/L
[2020-09-08 16:18] LABS: ABG Base Excess -3 mEq/L (-2 to 3); ABG HCO3 23 mEq/L (21-27); ABG Oxygen Saturation 94 % (95-98); ABG PCO2 46 mmHg (35-45); ABG PH 7.31 pH Units (7.32-7.45); ABG PO2 77 mmHg (85-104); ABG TCO2 25 mEq/L (20-26); Blood Gas Modality ASSIST CONTROL; Blood Gas VT 420 cc
[2020-09-08] MEDS: Albumin 25% 25gram/100mL 25 GM/100 ML IV.SOLN IVPB SCH (16:24)
[2020-09-08 16:32] LABS: VBG Ionized Calcium 1.13 mmol/L (1.15-1.35)
[2020-09-08] MEDS ORDERED: Clinimix E 5%-15% SOLUTION 2,000 ML with MVI, adult with vitamin K 10 ML IVC SCH (17:00)
[2020-09-08 17:01] LABS: Magnesium 1.9 mg/dL (1.6-2.6); Phosphorous 2.3 mg/dL (2.7-4.5); Potassium 4.5 mEq/L (3.5-5.1)
[2020-09-08] MEDS: Cefepime HCl 2,000 MG in Water for inj. (sterile) 20 ML IVP SCH (17:26)
[2020-09-08] MEDS: Chlorhexidine Rinse 15 ML MOUTHWASH MM SCH (21:06)
[2020-09-09] MEDS: Cefepime HCl 2,000 MG in Water for inj. (sterile) 20 ML IVP SCH ×3 (03:15→18:20)
[2020-09-09] MEDS: Ipratropium/Albuterol Neb 3 ML IH SCH ×6 (03:28→23:07)
[2020-09-09 03:50] LABS: Hemoglobin 7.6 g/dL (11.5-15.4); Monocytes % 7.7 %; Nucleated Red Blood Cells 0.3 /100 WBC (0)
[2020-09-09 03:51] LABS: VBG Ionized Calcium 1.15 mmol/L (1.15-1.35)
[2020-09-09 03:52] LABS: Basophils % 0.3 %; Eosinophils # 0.2 K/mcL (0.0-0.6); Eosinophils % 1.6 %; Hematocrit 23.8 % (35.3-44.9); Immature Granulocytes % 3.3 % (0-4); Immature Platelets 6.8 % (1.1-6.1); Lymphocytes % 18.6 %; Mean Corpuscular HGB Conc 31.9 g/dL (31.6-35.5); Mean Corpuscular Hemoglobin 39.2 pg (28.0-33.3); Mean Corpuscular Volume 122.7 fL (83.0-100.0); Mean Platelet Volume 11.1 fL (9.4-12.4); Monocytes # 0.8 K/mcL (0.0-1.3); Platelet Count 161 K/mcL (140-400); Red Blood Count 1.94 M/mcL (3.82-4.97); Red Cell Distribution Width 14.2 % (11.5-14.5); Segmented Neutrophils % 68.5 %; White Blood Count 10.6 K/mcL (4.3-11.1)
[2020-09-09 03:53] LABS: Neutrophils # 7.3 K/mcL (1.6-8.9)
[2020-09-09 04:10] LABS: Alanine Aminotransferase 11 Units/L (7-52); Albumin 3.1 g/dL (3.5-5.7); Albumin/Globulin Ratio 3.1 (1.1-2.2); Alkaline Phosphatase 74 Units/L (34-104); Aspartate Amino Transferase 34 Units/L (13-39); BUN/Creatinine Ratio 32 (6-26); Bilirubin,Total 1.2 mg/dL (0.3-1.0); Blood Urea Nitrogen 20 mg/dL (6-20); Calcium 7.9 mg/dL (8.6-10.3); Carbon Dioxide 23 mEq/L (23-29); Chloride 111 mEq/L (98-107); Glucose 189 mg/dL (70-105); Osmolality,Calculated 298 (280-300); Potassium 3.5 mEq/L (3.5-5.1); Sodium 140 mEq/L (136-145); Total Protein 4.1 g/dL (6.4-8.9); Triglycerides 378 mg/dL (< 150); eGFR For African Americans > 60 (> 60); eGFR For Non-African Americans > 60 (> 60)
[2020-09-09 04:19] LABS: ABG Base Excess 0 mEq/L (-2 to 3); ABG HCO3 23 mEq/L (21-27); ABG Oxygen Saturation 98 % (95-98); ABG PCO2 33 mmHg (35-45); ABG PH 7.46 pH Units (7.32-7.45); ABG PO2 90 mmHg (85-104); ABG TCO2 24 mEq/L (20-26); Blood Gas VT 420 cc
[2020-09-09 04:26] LABS: Macrocytosis Present (Not Present); Platelet Estimate Normal (Normal)
[2020-09-09] MEDS: Dexmedetomidine HCl 400 MCG/100 ML MLS IVC SCH ×2 (05:07→23:13)
[2020-09-09] MEDS: *HR* Metoprolol 5 MG/5 ML VIAL IVP SCH ×4 (05:08→23:12)
[2020-09-09] MEDS: *HR* Heparin 5,000 UNIT/ML VIAL SQ SCH ×2 (05:09→18:20)
[2020-09-09] MEDS: Pantoprazole 40 MG VIAL IVP SCH ×2 (05:09→18:20)
[2020-09-09] MEDS: Insulin LISPRO 300 UNITS/3 ML VIAL SUBQ SCH ×4 (05:25→23:19)
[2020-09-09] MEDS: FentaNYL (PF) 1,000 MCG/100 ML IV.SOLN IVC SCH ×2 (07:15→22:29)
[2020-09-09] MEDS: Albumin 25% 25gram/100mL 25 GM/100 ML IV.SOLN IVPB SCH ×2 (07:16→15:38)
[2020-09-09] MEDS: Chlorhexidine Rinse 15 ML MOUTHWASH MM SCH ×2 (07:16→20:37)
[2020-09-09] MEDS: Fluconazole 200 MG/100 ML 200 MG/100 ML BAG IVPB SCH (07:16)
[2020-09-09] MEDS: MetroNIDAZOLE 500 MG/100 ML 500 MG/100 ML BAG IVPB SCH ×3 (07:16→23:12)
[2020-09-09] MEDS ORDERED: Bumetanide 1 MG/4 ML VIAL IVP ONE ×2 (09:22→13:27)
[2020-09-09] MEDS: Thiamine (B-1) 500 MG in 0.9 % Sodium Chloride 50 ML IVPB SCH ×3 (09:39→15:32)
[2020-09-09 09:41] LABS: Magnesium 1.8 mg/dL (1.6-2.6); Phosphorous < 1.0 mg/dL (2.7-4.5)
[2020-09-09] MEDS ORDERED: Potassium Phosphate 44 MEQ in 0.9 % Sodium Chloride 250 ML IVPB ONE (09:59)
[2020-09-09] MEDS ORDERED: Bumetanide 1 MG/4 ML VIAL IVP SCH (11:00)
[2020-09-09] MEDS ORDERED: Clinimix E 5%-15% SOLUTION 2,000 ML with MVI, adult with vitamin K 10 ML IVC SCH (17:00)
[2020-09-09] MEDS: *HR* LORazepam 2 MG/ML VIAL IVP PRN (17:15)
[2020-09-09] MEDS: Bumetanide 1 MG/4 ML VIAL IVP SCH (17:15)
[2020-09-10] MEDS: Cefepime HCl 2,000 MG in Water for inj. (sterile) 20 ML IVP SCH ×3 (03:19→16:55)
[2020-09-10 03:46] LABS: VBG Ionized Calcium 1.05 mmol/L (1.15-1.35)
[2020-09-10 03:51] LABS: Basophils % 0.4 %; Hemoglobin 7.5 g/dL (11.5-15.4); Nucleated Red Blood Cells 0.5 /100 WBC (0)
[2020-09-10 03:52] LABS: Eosinophils # 0.2 K/mcL (0.0-0.6); Eosinophils % 1.8 %; Hematocrit 23.9 % (35.3-44.9); Immature Granulocytes % 4.5 % (0-4); Immature Platelets 10.6 % (1.1-6.1); Lymphocytes # 2.1 K/mcL (0.6-4.6); Lymphocytes % 21.4 %; Mean Corpuscular HGB Conc 31.4 g/dL (31.6-35.5); Mean Corpuscular Hemoglobin 36.8 pg (28.0-33.3); Mean Corpuscular Volume 117.2 fL (83.0-100.0); Mean Platelet Volume 11.2 fL (9.4-12.4); Monocytes # 0.9 K/mcL (0.0-1.3); Monocytes % 9.1 %; Platelet Count 130 K/mcL (140-400); Red Blood Count 2.04 M/mcL (3.82-4.97); Segmented Neutrophils % 62.8 %; White Blood Count 9.6 K/mcL (4.3-11.1)
[2020-09-10] MEDS: Ipratropium/Albuterol Neb 3 ML IH SCH ×6 (03:54→23:42)
[2020-09-10 04:06] LABS: BUN/Creatinine Ratio 29 (6-26); Blood Urea Nitrogen 25 mg/dL (6-20); Calcium 7.6 mg/dL (8.6-10.3); Carbon Dioxide 22 mEq/L (23-29); Chloride 113 mEq/L (98-107); Glucose 126 mg/dL (70-105); Magnesium 1.5 mg/dL (1.6-2.6); Osmolality,Calculated 304 (280-300); Phosphorous 4.9 mg/dL (2.7-4.5); Potassium 3.4 mEq/L (3.5-5.1); Sodium 144 mEq/L (136-145); eGFR For African Americans > 60 (> 60); eGFR For Non-African Americans > 60 (> 60)
[2020-09-10 04:11] LABS: ABG Base Excess -2 mEq/L (-2 to 3); ABG HCO3 24 mEq/L (21-27); ABG Oxygen Saturation 96 % (95-98); ABG PCO2 42 mmHg (35-45); ABG PH 7.35 pH Units (7.32-7.45); ABG PO2 84 mmHg (85-104); ABG TCO2 25 mEq/L (20-26); Blood Gas Modality ASSIST CONTROL; Blood Gas VT 380 cc
[2020-09-10] MEDS ORDERED: Calcium Gluconate 1,000 MG/10 ML VIAL IVP ONE (05:32)
[2020-09-10] MEDS: Calcium Gluconate 1gm/50mL 1 GM/50 ML BAG IVPB SCH ×2 (06:17→06:51)
[2020-09-10] MEDS: *HR* Heparin 5,000 UNIT/ML VIAL SQ SCH ×2 (06:17→16:54)
[2020-09-10] MEDS: *HR* Metoprolol 5 MG/5 ML VIAL IVP SCH (06:18)
[2020-09-10] MEDS: Insulin LISPRO 300 UNITS/3 ML VIAL SUBQ SCH ×4 (06:18→23:41)
[2020-09-10] MEDS: Pantoprazole 40 MG VIAL IVP SCH ×2 (06:19→16:54)
[2020-09-10] MEDS: Chlorhexidine Rinse 15 ML MOUTHWASH MM SCH ×2 (07:23→20:39)
[2020-09-10] MEDS: Albumin 25% 25gram/100mL 25 GM/100 ML IV.SOLN IVPB SCH ×2 (07:23→15:58)
[2020-09-10] MEDS: MetroNIDAZOLE 500 MG/100 ML 500 MG/100 ML BAG IVPB SCH ×3 (07:24→23:42)
[2020-09-10] MEDS: Artificial Tears SOLN 15 ML BOTTLE BOTH EYES PRN (07:52)
[2020-09-10] MEDS: Bumetanide 1 MG/4 ML VIAL IVP SCH ×2 (08:14→16:53)
[2020-09-10] MEDS: Fluconazole 200 MG/100 ML 200 MG/100 ML BAG IVPB SCH (08:43)
[2020-09-10] MEDS: FentaNYL (PF) 1,000 MCG/100 ML IV.SOLN IVC SCH ×2 (08:52→19:04)
[2020-09-10] MEDS: Dexmedetomidine HCl 400 MCG/100 ML MLS IVC SCH ×2 (10:16→21:18)
[2020-09-10 14:18] LABS: VBG Ionized Calcium 1.12 mmol/L (1.15-1.35)
[2020-09-10 14:36] LABS: BUN/Creatinine Ratio 26 (6-26); Blood Urea Nitrogen 26 mg/dL (6-20); Calcium 8.2 mg/dL (8.6-10.3); Carbon Dioxide 22 mEq/L (23-29); Chloride 111 mEq/L (98-107); Glucose 118 mg/dL (70-105); Osmolality,Calculated 298 (280-300); Phosphorous 4.3 mg/dL (2.7-4.5); Potassium 3.9 mEq/L (3.5-5.1); Sodium 141 mEq/L (136-145); eGFR For African Americans > 60 (> 60); eGFR For Non-African Americans 57 (> 60)
[2020-09-10] MEDS: carvediloL 6.25 MG TABLET PO SCH (15:59)
[2020-09-10] MEDS: *HR* LORazepam 2 MG/ML VIAL IVP PRN (16:14)
[2020-09-10] MEDS ORDERED: Clinimix E 5%-15% SOLUTION 2,000 ML with MVI, adult with vitamin K 10 ML IVC SCH (17:00)
[2020-09-11] MEDS: Ipratropium/Albuterol Neb 3 ML IH SCH ×5 (03:49→19:51)
[2020-09-11 03:51] LABS: VBG Ionized Calcium 1.13 mmol/L (1.15-1.35)
[2020-09-11 03:53] LABS: Hematocrit 23.5 % (35.3-44.9); Hemoglobin 7.1 g/dL (11.5-15.4); Immature Platelets 16.5 % (1.1-6.1); Mean Corpuscular HGB Conc 30.2 g/dL (31.6-35.5); Mean Corpuscular Volume 119.3 fL (83.0-100.0); Mean Platelet Volume 12.1 fL (9.4-12.4); Nucleated Red Blood Cells 0.6 /100 WBC (0); Platelet Count 111 K/mcL (140-400); Red Blood Count 1.97 M/mcL (3.82-4.97); Red Cell Distribution Width 15.8 % (11.5-14.5)
[2020-09-11 04:10] LABS: Calcium 8.5 mg/dL (8.6-10.3); Magnesium 1.8 mg/dL (1.6-2.6); Phosphorous 4.3 mg/dL (2.7-4.5); Potassium 3.7 mEq/L (3.5-5.1)
[2020-09-11 04:40] LABS: Hypochromasia Present (Not Present); Lymphocytes # 2.3 K/mcL (0.6-4.6); Monocytes # 0.8 K/mcL (0.0-1.3); Neutrophils # 9.1 K/mcL (1.6-8.9)
[2020-09-11 04:41] LABS: Anisocytosis 1+ (Not Present); Platelet Estimate Slight Decrease (Normal)
[2020-09-11 04:44] LABS: ABG Base Excess -2 mEq/L (-2 to 3); ABG HCO3 23 mEq/L (21-27); ABG Oxygen Saturation 94 % (95-98); ABG PCO2 40 mmHg (35-45); ABG PH 7.36 pH Units (7.32-7.45); ABG PO2 75 mmHg (85-104); ABG TCO2 24 mEq/L (20-26); Blood Gas VT 380 cc
[2020-09-11] MEDS: *HR* LORazepam 2 MG/ML VIAL IVP PRN (04:52)
[2020-09-11] MEDS: *HR* Heparin 5,000 UNIT/ML VIAL SQ SCH ×2 (05:01→17:59)
[2020-09-11] MEDS: Cefepime HCl 2,000 MG in Water for inj. (sterile) 20 ML IVP SCH ×2 (05:02→17:58)
[2020-09-11] MEDS: Insulin LISPRO 300 UNITS/3 ML VIAL SUBQ SCH ×4 (05:02→23:40)
[2020-09-11] MEDS: Pantoprazole 40 MG VIAL IVP SCH ×2 (05:04→17:59)
[2020-09-11] MEDS: FentaNYL (PF) 1,000 MCG/100 ML IV.SOLN IVC SCH ×2 (06:24→17:08)
[2020-09-11] MEDS: Dexmedetomidine HCl 400 MCG/100 ML MLS IVC SCH ×2 (07:02→17:08)
[2020-09-11] MEDS: Bumetanide 1 MG/4 ML VIAL IVP SCH ×2 (07:42→17:09)
[2020-09-11] MEDS: MetroNIDAZOLE 500 MG/100 ML 500 MG/100 ML BAG IVPB SCH ×3 (07:42→23:16)
[2020-09-11] MEDS: Albumin 25% 25gram/100mL 25 GM/100 ML IV.SOLN IVPB SCH ×2 (07:43→17:29)
[2020-09-11] MEDS: Fluconazole 200 MG/100 ML 200 MG/100 ML BAG IVPB SCH (07:43)
[2020-09-11] MEDS: Chlorhexidine Rinse 15 ML MOUTHWASH MM SCH ×2 (07:43→20:30)
[2020-09-11] MEDS: carvediloL 6.25 MG TABLET PO SCH ×2 (10:52→17:30)
[2020-09-11 11:22] LABS: ABG Base Excess -4 mEq/L (-2 to 3); ABG HCO3 22 mEq/L (21-27); ABG Oxygen Saturation 94 % (95-98); ABG PCO2 51 mmHg (35-45); ABG PH 7.26 pH Units (7.32-7.45); ABG PO2 84 mmHg (85-104); ABG TCO2 24 mEq/L (20-26); Blood Gas Modality ASSIST CONTROL; Blood Gas VT 450 cc
[2020-09-11] MEDS ORDERED: 0.9 % Sodium Chloride 250 ML ONE (15:07)
[2020-09-11] MEDS ORDERED: Clinimix E 5%-15% SOLUTION 2,000 ML with MVI, adult with vitamin K 10 ML IVC SCH (17:00)
[2020-09-12] MEDS: Ipratropium/Albuterol Neb 3 ML IH SCH ×7 (00:02→23:35)
[2020-09-12] MEDS: *HR* LORazepam 2 MG/ML VIAL IVP PRN ×4 (00:40→17:30)
[2020-09-12] MEDS: Dexmedetomidine HCl 400 MCG/100 ML MLS IVC SCH ×3 (01:30→19:51)
[2020-09-12] MEDS: FentaNYL (PF) 1,000 MCG/100 ML IV.SOLN IVC SCH ×3 (01:54→21:11)
[2020-09-12] MEDS: Cefepime HCl 2,000 MG in Water for inj. (sterile) 20 ML IVP SCH ×2 (05:02→16:37)
[2020-09-12] MEDS: *HR* Heparin 5,000 UNIT/ML VIAL SQ SCH ×2 (05:02→16:38)
[2020-09-12] MEDS: Pantoprazole 40 MG VIAL IVP SCH ×2 (05:05→16:38)
[2020-09-12 05:57] LABS: ABG Base Excess -7 mEq/L (-2 to 3); ABG HCO3 19 mEq/L (21-27); ABG Oxygen Saturation 90 % (95-98); ABG PCO2 42 mmHg (35-45); ABG PH 7.27 pH Units (7.32-7.45); ABG PO2 66 mmHg (85-104); ABG TCO2 20 mEq/L (20-26); Blood Gas VT 480 cc
[2020-09-12 06:03] LABS: Calcium 8.5 mg/dL (8.6-10.3); Magnesium 2.2 mg/dL (1.6-2.6); Phosphorous 3.6 mg/dL (2.7-4.5); Potassium 3.9 mEq/L (3.5-5.1)
[2020-09-12] MEDS ORDERED: Furosemide 240 MG in 0.9 % Sodium Chloride 96 ML IVC SCH (06:15)
[2020-09-12] MEDS: Insulin LISPRO 300 UNITS/3 ML VIAL SUBQ SCH ×6 (06:19→23:44)
[2020-09-12] MEDS: Bumetanide 1 MG/4 ML VIAL IVP SCH (08:30)
[2020-09-12] MEDS: Chlorhexidine Rinse 15 ML MOUTHWASH MM SCH ×2 (08:31→19:51)
[2020-09-12] MEDS: Fluconazole 200 MG/100 ML 200 MG/100 ML BAG IVPB SCH (08:31)
[2020-09-12] MEDS: Albumin 25% 25gram/100mL 25 GM/100 ML IV.SOLN IVPB SCH ×2 (08:31→16:38)
[2020-09-12] MEDS: carvediloL 6.25 MG TABLET PO SCH ×2 (08:39→16:39)
[2020-09-12] MEDS: MetroNIDAZOLE 500 MG/100 ML 500 MG/100 ML BAG IVPB SCH ×3 (08:39→23:45)
[2020-09-12] MEDS: Artificial Tears SOLN 15 ML BOTTLE BOTH EYES PRN (09:01)
[2020-09-12 09:37] LABS: Hematocrit 25.9 % (35.3-44.9); Hemoglobin 7.7 g/dL (11.5-15.4); Immature Platelets 21.5 % (1.1-6.1); Mean Corpuscular HGB Conc 29.7 g/dL (31.6-35.5); Mean Corpuscular Hemoglobin 33.3 pg (28.0-33.3); Mean Corpuscular Volume 112.1 fL (83.0-100.0); Mean Platelet Volume 12.7 fL (9.4-12.4); Nucleated Red Blood Cells 0.5 /100 WBC (0); Platelet Count 98 K/mcL (140-400); Red Blood Count 2.31 M/mcL (3.82-4.97); Red Cell Distribution Width 24.2 % (11.5-14.5)
[2020-09-12 10:58] LABS: Anisocytosis 3+ (Not Present); Lymphocytes # 1.5 K/mcL (0.6-4.6); Macrocytosis Present (Not Present); Monocytes # 0.8 K/mcL (0.0-1.3); Neutrophils # 16.7 K/mcL (1.6-8.9); Platelet Estimate Decreased (Normal)
[2020-09-12] MEDS: Bumetanide 12 MG in 0.9 % Sodium Chloride 48 ML IVC SCH ×2 (13:25→23:43)
[2020-09-12] MEDS ORDERED: Clinimix E 5%-20% SOLUTION 2,000 ML with MVI, adult with vitamin K 10 ML IVC SCH (17:00)
[2020-09-13 02:53] LABS: VBG Ionized Calcium 1.24 mmol/L (1.15-1.35)
[2020-09-13 02:54] LABS: Hemoglobin 6.9 g/dL (11.5-15.4); Mean Corpuscular Hemoglobin 33.8 pg (28.0-33.3); Red Blood Count 2.04 M/mcL (3.82-4.97)
[2020-09-13 02:56] LABS: Hematocrit 23.1 % (35.3-44.9); Immature Platelets 27.7 % (1.1-6.1); Mean Corpuscular HGB Conc 29.9 g/dL (31.6-35.5); Mean Corpuscular Volume 113.2 fL (83.0-100.0); Mean Platelet Volume 13.7 fL (9.4-12.4); Nucleated Red Blood Cells 0.4 /100 WBC (0); Red Cell Distribution Width 24.5 % (11.5-14.5); White Blood Count 24.9 K/mcL (4.3-11.1)
[2020-09-13 02:58] LABS: Platelet Count 99 K/mcL (140-400)
[2020-09-13 03:09] LABS: Albumin 3.6 g/dL (3.5-5.7); Albumin/Globulin Ratio 2.6 (1.1-2.2); Calcium 8.5 mg/dL (8.6-10.3); Globulin 1.4 g/dL (2.4-3.5); Phosphorous 4.1 mg/dL (2.7-4.5); Potassium 4.3 mEq/L (3.5-5.1)
[2020-09-13] MEDS ORDERED: 0.9 % Sodium Chloride 250 ML IVC SCH (03:15)
[2020-09-13 03:34] LABS: Anisocytosis 2+ (Not Present); Hypochromasia Present (Not Present); Monocytes # 0.5 K/mcL (0.0-1.3); Neutrophils # 20.9 K/mcL (1.6-8.9); Platelet Estimate Slight Decrease (Normal); Poikilocytosis 1+ (Not Present); Polychromasia 1+ (Not Present)
[2020-09-13] MEDS: Ipratropium/Albuterol Neb 3 ML IH SCH ×6 (03:50→23:42)
[2020-09-13] MEDS: Dexmedetomidine HCl 400 MCG/100 ML MLS IVC SCH ×3 (03:51→20:27)
[2020-09-13 04:48] LABS: ABG Base Excess -9 mEq/L (-2 to 3); ABG HCO3 19 mEq/L (21-27); ABG Oxygen Saturation 88 % (95-98); ABG PCO2 55 mmHg (35-45); ABG PH 7.14 pH Units (7.32-7.45); ABG PO2 72 mmHg (85-104); ABG TCO2 21 mEq/L (20-26); Blood Gas VT 500 cc
[2020-09-13] MEDS: Insulin LISPRO 300 UNITS/3 ML VIAL SUBQ SCH ×6 (05:15→23:23)
[2020-09-13] MEDS: *HR* Heparin 5,000 UNIT/ML VIAL SQ SCH ×2 (06:00→18:28)
[2020-09-13] MEDS: Pantoprazole 40 MG VIAL IVP SCH ×2 (06:00→18:28)
[2020-09-13] MEDS: Cefepime HCl 2,000 MG in Water for inj. (sterile) 20 ML IVP SCH (06:00)
[2020-09-13] MEDS: FentaNYL (PF) 1,000 MCG/100 ML IV.SOLN IVC SCH ×2 (06:18→15:41)
[2020-09-13] MEDS: carvediloL 6.25 MG TABLET PO SCH ×2 (07:14→18:35)
[2020-09-13] MEDS: Albumin 25% 25gram/100mL 25 GM/100 ML IV.SOLN IVPB SCH ×2 (08:19→18:22)
[2020-09-13] MEDS: Chlorhexidine Rinse 15 ML MOUTHWASH MM SCH ×2 (08:19→20:11)
[2020-09-13] MEDS: MetroNIDAZOLE 500 MG/100 ML 500 MG/100 ML BAG IVPB SCH (08:20)
[2020-09-13] MEDS: Micafungin 100 MG in 0.9 % Sodium Chloride Mini Bag 100 ML IVPB SCH (10:06)
[2020-09-13 10:53] LABS: Bilirubin,Direct 0.5 mg/dL (0.0-0.2); Bilirubin,Indirect 0.6 mg/dL (0.0-1.0); Bilirubin,Total 1.1 mg/dL (0.3-1.0)
[2020-09-13 11:10] LABS: Hematocrit 32.3 % (35.3-44.9)
[2020-09-13 11:11] LABS: Hemoglobin 10.2 g/dL (11.5-15.4)
[2020-09-13 11:42] LABS: ABG Base Excess -8 mEq/L (-2 to 3); ABG HCO3 19 mEq/L (21-27); ABG Oxygen Saturation 87 % (95-98); ABG PCO2 42 mmHg (35-45); ABG PH 7.26 pH Units (7.32-7.45); ABG PO2 62 mmHg (85-104); ABG TCO2 20 mEq/L (20-26); Blood Gas VT 500 cc
[2020-09-13] MEDS: *HR* LORazepam 2 MG/ML VIAL IVP PRN ×2 (14:25→20:29)
[2020-09-13 14:51] LABS: Hematocrit 33.3 % (35.3-44.9); Hemoglobin 10.6 g/dL (11.5-15.4)
[2020-09-13 15:47] LABS: Adenovirus Not Detected (Not Detect); Coronavirus 229E Not Detected (Not Detect); Coronavirus HKU1 Not Detected (Not Detect); Coronavirus NL63 Not Detected (Not Detect); Coronavirus OC43 Not Detected (Not Detect); Human Metapneumovirus Not Detected (Not Detect); Human Rhinovirus/Enterovirus Not Detected (Not Detect); Influenza A Subtype 2009 H1 Not Detected (Not Detect); Influenza B Not Detected (Not Detect); Parainfluenza Virus 1 Not Detected (Not Detect); SARS-CoV-2 Not Detected (Not Detect)
[2020-09-13 15:48] LABS: Bordetella Pertussis Not Detected (Not Detect); Chlamydophila pneumoniae Not Detected (Not Detect); Mycoplasma pneumoniae Not Detected (Not Detect); Parainfluenza Virus 2 Not Detected (Not Detect); Parainfluenza Virus 3 Not Detected (Not Detect); Parainfluenza Virus 4 Not Detected (Not Detect); Respiratory Syncytial Virus Not Detected (Not Detect)
[2020-09-13] MEDS ORDERED: Clinimix E 5%-20% SOLUTION 2,000 ML with MVI, adult with vitamin K 10 ML IVC SCH (17:00)
[2020-09-13] MEDS ORDERED: Vancomycin 1,250 MG/262.5 ML IV.SOLN IVPB ONE (17:00)
[2020-09-13] MEDS: Norepinephrine 4 MG/254 ML IV.SOLN IVC SCH (17:15)
[2020-09-13] MEDS ORDERED: Cefepime HCl 1,000 MG in Water for inj. (sterile) 10 ML IVP SCH (18:00)
[2020-09-13] MEDS: Meropenem 1,000 MG in Water for inj. (sterile) 20 ML IVP SCH ×2 (18:23→23:23)
[2020-09-13] MEDS ORDERED: Calcium Gluconate 1gm/50mL 1 GM/50 ML BAG IVPB PRN ×2 (20:23)
[2020-09-13] MEDS ORDERED: *HR* Heparin 5,000 UNIT/ML VIAL IVP PRN (20:23)
[2020-09-13 20:44] LABS: Hematocrit 33.1 % (35.3-44.9); Hemoglobin 10.6 g/dL (11.5-15.4)
[2020-09-13] MEDS ORDERED: 0.9 % Sodium Chloride 1,000 ML ONE (21:01)
[2020-09-13] MEDS: 0.9 % Sodium Chloride 1,000 ML PRIME SCH (21:17)
[2020-09-13] MEDS: Calcium Chloride 4,000 MG in 0.9 % Sodium Chloride 1,000 ML CRRT SCH (21:20)
[2020-09-13] MEDS: PrismaSATE BGK 4/2.5 5,000 ML CRRT SCH ×2 (21:21)
[2020-09-13] MEDS ORDERED: 0.9 % Sodium Chloride 1,000 ML PRIME PRN (21:54)
[2020-09-14 00:06] LABS: VBG Ionized Calcium 1.06 mmol/L (1.15-1.35)
[2020-09-14] MEDS: FentaNYL (PF) 1,000 MCG/100 ML IV.SOLN IVC SCH ×4 (01:06→19:24)
[2020-09-14 02:10] LABS: Hematocrit 32.4 % (35.3-44.9); Hemoglobin 10.3 g/dL (11.5-15.4)
[2020-09-14 02:12] LABS: VBG Ionized Calcium 1.07 mmol/L (1.15-1.35)
[2020-09-14] MEDS: PrismaSATE BGK 4/2.5 5,000 ML CRRT SCH ×10 (02:50→23:20)
[2020-09-14] MEDS: Ipratropium/Albuterol Neb 3 ML IH SCH ×6 (03:30→23:19)
[2020-09-14] MEDS: Dexmedetomidine HCl 400 MCG/100 ML MLS IVC SCH ×3 (03:30→17:00)
[2020-09-14] MEDS: Insulin LISPRO 300 UNITS/3 ML VIAL SUBQ SCH ×6 (03:53→23:45)
[2020-09-14 04:50] LABS: Calcium 9.1 mg/dL (8.6-10.3); Magnesium 1.9 mg/dL (1.6-2.6); Phosphorous 2.2 mg/dL (2.7-4.5); Potassium 4.2 mEq/L (3.5-5.1)
[2020-09-14 04:51] LABS: ABG Base Excess -4 mEq/L (-2 to 3); ABG HCO3 21 mEq/L (21-27); ABG Oxygen Saturation 87 % (95-98); ABG PCO2 42 mmHg (35-45); ABG PH 7.32 pH Units (7.32-7.45); ABG PO2 58 mmHg (85-104); ABG TCO2 23 mEq/L (20-26); Blood Gas VT 500 cc
[2020-09-14] MEDS: Pantoprazole 40 MG VIAL IVP SCH ×2 (05:08→16:47)
[2020-09-14] MEDS: *HR* Heparin 5,000 UNIT/ML VIAL SQ SCH ×2 (05:08→16:47)
[2020-09-14 06:03] LABS: VBG Ionized Calcium 1.08 mmol/L (1.15-1.35)
[2020-09-14 06:13] LABS: Basophils % 0.3 %; Eosinophils % 0.1 %; Monocytes % 5.6 %; Red Blood Count 3.04 M/mcL (3.82-4.97)
[2020-09-14 06:14] LABS: Basophils # 0.1 K/mcL (0.0-0.2); Hematocrit 31.3 % (35.3-44.9); Hemoglobin 9.8 g/dL (11.5-15.4); Immature Granulocytes % 2.7 % (0-4); Immature Platelets 37.9 % (1.1-6.1); Lymphocytes # 1.3 K/mcL (0.6-4.6); Lymphocytes % 4.2 %; Mean Corpuscular HGB Conc 31.3 g/dL (31.6-35.5); Mean Corpuscular Hemoglobin 32.2 pg (28.0-33.3); Mean Platelet Volume 14.2 fL (9.4-12.4); Monocytes # 1.7 K/mcL (0.0-1.3); Nucleated Red Blood Cells 0.3 /100 WBC (0); Red Cell Distribution Width 24.7 % (11.5-14.5); Segmented Neutrophils % 87.1 %
[2020-09-14 06:18] LABS: Neutrophils # 26.7 K/mcL (1.6-8.9); Platelet Count 87 K/mcL (140-400)
[2020-09-14 06:19] LABS: White Blood Count 30.7 K/mcL (4.3-11.1)
[2020-09-14] MEDS: Norepinephrine 4 MG/254 ML IV.SOLN IVC SCH ×3 (06:36→23:32)
[2020-09-14 06:46] LABS: Anisocytosis 3+ (Not Present); Macrocytosis Present (Not Present); Platelet Estimate Decreased (Normal); Poikilocytosis 1+ (Not Present); Stomatocytes 1+ (Not Present); Target Cells 1+ (Not Present)
[2020-09-14 08:00] LABS: VBG Ionized Calcium 1.18 mmol/L (1.15-1.35)
[2020-09-14] MEDS: carvediloL 6.25 MG TABLET PO SCH (08:37)
[2020-09-14] MEDS: Chlorhexidine Rinse 15 ML MOUTHWASH MM SCH ×2 (08:38→19:47)
[2020-09-14] MEDS: Meropenem 1,000 MG in Water for inj. (sterile) 20 ML IVP SCH ×3 (08:38→23:42)
[2020-09-14] MEDS: Micafungin 100 MG in 0.9 % Sodium Chloride Mini Bag 100 ML IVPB SCH (08:45)
[2020-09-14] MEDS: Albumin 25% 25gram/100mL 25 GM/100 ML IV.SOLN IVPB SCH ×2 (08:45→16:48)
[2020-09-14 10:12] LABS: VBG Ionized Calcium 1.19 mmol/L (1.15-1.35)
[2020-09-14 11:39] LABS: Hematocrit 28.3 % (35.3-44.9); Hemoglobin 9.2 g/dL (11.5-15.4)
[2020-09-14 11:50] LABS: Albumin 3.8 g/dL (3.5-5.7); Albumin/Globulin Ratio 2.7 (1.1-2.2); Bilirubin,Total 1.5 mg/dL (0.3-1.0); Globulin 1.4 g/dL (2.4-3.5); Total Protein 5.2 g/dL (6.4-8.9)
[2020-09-14] MEDS ORDERED: Vancomycin 1,250 MG/262.5 ML IV.SOLN IVPB SCH (12:00)
[2020-09-14 12:15] LABS: Appearance of Pleural Fl Hazy (Clear)
[2020-09-14] MEDS: Vancomycin 1,500 MG/265 ML IV.SOLN IVPB SCH ×2 (12:16→23:42)
[2020-09-14 12:29] LABS: RBC,Pleural Fluid < 2000 RBC/mcL
[2020-09-14 12:48] LABS: Amylase,Pleural Fluid 22 Units/L (No Ref Range); Glucose,Pleural Fluid 102 mg/dL (No Ref Range); LDH,Pleural Fluid 129 Units/L (No Ref Range); Total Protein,Pleural Fluid < 2.0 g/dL
[2020-09-14 16:38] LABS: VBG Ionized Calcium 1.24 mmol/L (1.15-1.35)
[2020-09-14] MEDS: Calcium Chloride 4,000 MG in 0.9 % Sodium Chloride 1,000 ML CRRT SCH (16:54)
[2020-09-14] MEDS ORDERED: Clinimix E 5%-20% SOLUTION 2,000 ML with MVI, adult with vitamin K 10 ML IVC SCH (17:00)
[2020-09-14] MEDS: 0.9 % Sodium Chloride 1,000 ML PRIME SCH (18:37)
[2020-09-14] MEDS: *HR* LORazepam 2 MG/ML VIAL IVP PRN (19:57)
[2020-09-14 22:26] LABS: VBG Ionized Calcium 1.19 mmol/L (1.15-1.35)
[2020-09-15] MEDS: FentaNYL (PF) 1,000 MCG/100 ML IV.SOLN IVC SCH (00:07)
[2020-09-15] MEDS: Dexmedetomidine HCl 400 MCG/100 ML MLS IVC SCH ×4 (00:20→22:29)
[2020-09-15] MEDS: Ipratropium/Albuterol Neb 3 ML IH SCH ×5 (03:27→20:36)
[2020-09-15] MEDS: Insulin LISPRO 300 UNITS/3 ML VIAL SUBQ SCH ×6 (03:37→23:38)
[2020-09-15] MEDS: PrismaSATE BGK 4/2.5 5,000 ML CRRT SCH ×8 (04:12→19:45)
[2020-09-15 04:36] LABS: VBG Ionized Calcium 1.22 mmol/L (1.15-1.35)
[2020-09-15 04:37] LABS: Nucleated Red Blood Cells 0.8 /100 WBC (0)
[2020-09-15 04:39] LABS: Hemoglobin 8.4 g/dL (11.5-15.4); Immature Platelets 45.3 % (1.1-6.1); Mean Corpuscular HGB Conc 31.1 g/dL (31.6-35.5); Mean Corpuscular Hemoglobin 32.1 pg (28.0-33.3); Mean Corpuscular Volume 103.1 fL (83.0-100.0); Red Blood Count 2.62 M/mcL (3.82-4.97); Red Cell Distribution Width 23.8 % (11.5-14.5); White Blood Count 25.2 K/mcL (4.3-11.1)
[2020-09-15 04:43] LABS: Alanine Aminotransferase 8 Units/L (7-52); Albumin 3.9 g/dL (3.5-5.7); Albumin/Globulin Ratio 2.4 (1.1-2.2); Alkaline Phosphatase 138 Units/L (34-104); Aspartate Amino Transferase 59 Units/L (13-39); BUN/Creatinine Ratio 17 (6-26); Bilirubin,Direct 0.7 mg/dL (0.0-0.2); Bilirubin,Indirect 0.5 mg/dL (0.0-1.0); Bilirubin,Total 1.2 mg/dL (0.3-1.0); Blood Urea Nitrogen 11 mg/dL (6-20); Calcium 9.5 mg/dL (8.6-10.3); Carbon Dioxide 25 mEq/L (23-29); Chloride 105 mEq/L (98-107); Globulin 1.6 g/dL (2.4-3.5); Glucose 169 mg/dL (70-105); Magnesium 1.9 mg/dL (1.6-2.6); Osmolality,Calculated 289 (280-300); Phosphorous 3.8 mg/dL (2.7-4.5); Potassium 4.1 mEq/L (3.5-5.1); Sodium 138 mEq/L (136-145); Total Protein 5.5 g/dL (6.4-8.9); eGFR For African Americans > 60 (> 60); eGFR For Non-African Americans > 60 (> 60)
[2020-09-15 04:49] LABS: Platelet Count 87 K/mcL (140-400)
[2020-09-15 04:59] LABS: ABG Base Excess -1 mEq/L (-2 to 3); ABG HCO3 25 mEq/L (21-27); ABG Oxygen Saturation 92 % (95-98); ABG PCO2 47 mmHg (35-45); ABG PH 7.34 pH Units (7.32-7.45); ABG PO2 69 mmHg (85-104); ABG TCO2 26 mEq/L (20-26); Blood Gas Modality AF; Blood Gas VT 500 cc
[2020-09-15 05:20] LABS: Anisocytosis 3+ (Not Present); Monocytes # 1.5 K/mcL (0.0-1.3); Neutrophils # 20.7 K/mcL (1.6-8.9)
[2020-09-15 05:21] LABS: Platelet Estimate Decreased (Normal); Poikilocytosis 1+ (Not Present); Polychromasia 1+ (Not Present); Reactive Lymphocytes Present (Not Present); Stomatocytes 1+ (Not Present)
[2020-09-15] MEDS: Pantoprazole 40 MG VIAL IVP SCH ×2 (05:34→17:16)
[2020-09-15] MEDS: *HR* Heparin 5,000 UNIT/ML VIAL SQ SCH ×2 (05:34→16:28)
[2020-09-15] MEDS: FentaNYL (PF) 2,500 MCG/50 ML IV.SOLN IVC SCH ×2 (05:50→14:59)
[2020-09-15] MEDS: Albumin 25% 25gram/100mL 25 GM/100 ML IV.SOLN IVPB SCH ×2 (07:37→15:25)
[2020-09-15] MEDS: Chlorhexidine Rinse 15 ML MOUTHWASH MM SCH ×2 (07:37→20:10)
[2020-09-15] MEDS: Meropenem 1,000 MG in Water for inj. (sterile) 20 ML IVP SCH ×3 (07:38→23:41)
[2020-09-15] MEDS: Micafungin 100 MG in 0.9 % Sodium Chloride Mini Bag 100 ML IVPB SCH (07:38)
[2020-09-15] MEDS: Norepinephrine 4 MG/254 ML IV.SOLN IVC SCH (10:00)
[2020-09-15 10:11] LABS: VBG Ionized Calcium 1.31 mmol/L (1.15-1.35)
[2020-09-15 10:15] LABS: Hematocrit 25.6 % (35.3-44.9); Hemoglobin 7.8 g/dL (11.5-15.4)
[2020-09-15 10:40] LABS: INR 2.1; Prothrombin Time 23.5 Seconds (9.4-12.1)
[2020-09-15 10:43] LABS: Activated Partial Thrombo Time 34.8 Seconds (26.0-36.0)
[2020-09-15] MEDS: Calcium Chloride 4,000 MG in 0.9 % Sodium Chloride 1,000 ML CRRT SCH (10:58)
[2020-09-15] MEDS: Artificial Tears SOLN 15 ML BOTTLE BOTH EYES PRN ×2 (11:35→17:16)
[2020-09-15 16:24] LABS: Fluid Source for Triglycerides PLEURAL FLUID
[2020-09-15 16:44] LABS: VBG Ionized Calcium 1.24 mmol/L (1.15-1.35)
[2020-09-15] MEDS ORDERED: Clinimix E 5%-20% SOLUTION 2,000 ML with MVI, adult with vitamin K 10 ML IVC SCH (17:00)
[2020-09-15 19:11] LABS: Hematocrit 28.3 % (35.3-44.9); Immature Platelets 44.7 % (1.1-6.1); Mean Corpuscular HGB Conc 31.8 g/dL (31.6-35.5); Mean Corpuscular Hemoglobin 32.7 pg (28.0-33.3); Mean Corpuscular Volume 102.9 fL (83.0-100.0); Nucleated Red Blood Cells 1.2 /100 WBC (0); Platelet Count 81 K/mcL (140-400); Red Blood Count 2.75 M/mcL (3.82-4.97); Red Cell Distribution Width 21.5 % (11.5-14.5); White Blood Count 21.3 K/mcL (4.3-11.1)
[2020-09-15 19:27] LABS: Monocytes # 0.9 K/mcL (0.0-1.3); Neutrophils # 16.6 K/mcL (1.6-8.9); Platelet Estimate Marked Decrease (Normal)
[2020-09-15 19:28] LABS: Anisocytosis 2+ (Not Present); Reactive Lymphocytes Present (Not Present)
[2020-09-15 22:05] LABS: VBG Ionized Calcium 1.31 mmol/L (1.15-1.35)
[2020-09-15 22:28] LABS: Fluid Source for Cholesterol PLEURAL FLUID
[2020-09-15] MEDS: *HR* LORazepam 2 MG/ML VIAL IVP PRN (22:31)
[2020-09-16] MEDS: Ipratropium/Albuterol Neb 3 ML IH SCH ×6 (00:09→20:14)
[2020-09-16] MEDS: PrismaSATE BGK 4/2.5 5,000 ML CRRT SCH ×10 (00:33→20:15)
[2020-09-16] MEDS: FentaNYL (PF) 2,500 MCG/50 ML IV.SOLN IVC SCH ×2 (01:28→12:40)
[2020-09-16 02:53] LABS: Fluid Source for Albumin PLEURAL
[2020-09-16 04:20] LABS: VBG Ionized Calcium 1.28 mmol/L (1.15-1.35)
[2020-09-16] MEDS: Insulin LISPRO 300 UNITS/3 ML VIAL SUBQ SCH ×5 (04:20→20:24)
[2020-09-16 04:22] LABS: ABG Base Excess 1 mEq/L (-2 to 3); ABG HCO3 28 mEq/L (21-27); ABG Oxygen Saturation 96 % (95-98); ABG PCO2 61 mmHg (35-45); ABG PH 7.27 pH Units (7.32-7.45); ABG PO2 91 mmHg (85-104); ABG TCO2 30 mEq/L (20-26); Blood Gas Modality ASSIST CONTROL; Blood Gas VT 500 cc
[2020-09-16 04:31] LABS: INR 1.4; Prothrombin Time 16.5 Seconds (9.4-12.1)
[2020-09-16 04:38] LABS: BUN/Creatinine Ratio 22 (6-26); Blood Urea Nitrogen 10 mg/dL (6-20); Calcium 10.1 mg/dL (8.6-10.3); Carbon Dioxide 28 mEq/L (23-29); Chloride 102 mEq/L (98-107); Glucose 197 mg/dL (70-105); Magnesium 2.1 mg/dL (1.6-2.6); Osmolality,Calculated 287 (280-300); Phosphorous 1.1 mg/dL (2.7-4.5); Potassium 3.9 mEq/L (3.5-5.1); Sodium 136 mEq/L (136-145); Triglycerides 437 mg/dL (< 150); eGFR For African Americans > 60 (> 60); eGFR For Non-African Americans > 60 (> 60)
[2020-09-16] MEDS: Calcium Chloride 4,000 MG in 0.9 % Sodium Chloride 1,000 ML CRRT SCH (05:06)
[2020-09-16 05:31] LABS: Basophils % 0.5 %; Nucleated Red Blood Cells 1.8 /100 WBC (0)
[2020-09-16 05:33] LABS: Basophils # 0.1 K/mcL (0.0-0.2); Eosinophils # 0.1 K/mcL (0.0-0.6); Eosinophils % 0.3 %; Hematocrit 28.5 % (35.3-44.9); Hemoglobin 9.2 g/dL (11.5-15.4); Immature Granulocytes % 2.4 % (0-4); Immature Platelets 48.2 % (1.1-6.1); Lymphocytes # 1.4 K/mcL (0.6-4.6); Lymphocytes % 7.2 %; Mean Corpuscular HGB Conc 32.3 g/dL (31.6-35.5); Mean Corpuscular Volume 102.2 fL (83.0-100.0); Monocytes # 1.4 K/mcL (0.0-1.3); Monocytes % 7.4 %; Neutrophils # 15.7 K/mcL (1.6-8.9); Red Blood Count 2.79 M/mcL (3.82-4.97); Red Cell Distribution Width 22.4 % (11.5-14.5); Segmented Neutrophils % 82.2 %; White Blood Count 19.1 K/mcL (4.3-11.1)
[2020-09-16] MEDS: Dexmedetomidine HCl 400 MCG/100 ML MLS IVC SCH ×3 (05:42→16:29)
[2020-09-16] MEDS: Pantoprazole 40 MG VIAL IVP SCH ×2 (05:44→17:04)
[2020-09-16] MEDS: *HR* Heparin 5,000 UNIT/ML VIAL SQ SCH ×2 (05:44→16:03)
[2020-09-16 06:22] LABS: Platelet Count 73 K/mcL (140-400)
[2020-09-16] MEDS: Meropenem 1,000 MG in Water for inj. (sterile) 20 ML IVP SCH ×3 (07:18→23:56)
[2020-09-16] MEDS: Chlorhexidine Rinse 15 ML MOUTHWASH MM SCH ×2 (07:28→20:25)
[2020-09-16] MEDS: Norepinephrine 4 MG/254 ML IV.SOLN IVC SCH ×2 (07:31→21:25)
[2020-09-16] MEDS: Micafungin 100 MG in 0.9 % Sodium Chloride Mini Bag 100 ML IVPB SCH (08:01)
[2020-09-16] MEDS: Albumin 25% 25gram/100mL 25 GM/100 ML IV.SOLN IVPB SCH ×2 (08:01→15:01)
[2020-09-16] MEDS: *HR* LORazepam 2 MG/ML VIAL IVP PRN ×3 (08:29→22:06)
[2020-09-16 09:42] LABS: VBG Ionized Calcium 1.31 mmol/L (1.15-1.35)
[2020-09-16 12:04] LABS: Cholesterol,Body Fluid 8 mg/dL
[2020-09-16 12:04] LABS: Triglycerides,Body Fluid 21 mg/dL
[2020-09-16 15:27] LABS: VBG Ionized Calcium 1.32 mmol/L (1.15-1.35)
[2020-09-16] MEDS ORDERED: Clinimix E 5%-20% SOLUTION 2,000 ML with MVI, adult with vitamin K 10 ML IVC SCH (17:00)
[2020-09-16 22:32] LABS: VBG Ionized Calcium 1.28 mmol/L (1.15-1.35)
[2020-09-17] MEDS: Insulin LISPRO 300 UNITS/3 ML VIAL SUBQ SCH ×6 (00:03→20:14)
[2020-09-17] MEDS: Calcium Chloride 4,000 MG in 0.9 % Sodium Chloride 1,000 ML CRRT SCH ×2 (00:06→17:56)
[2020-09-17] MEDS: Ipratropium/Albuterol Neb 3 ML IH SCH ×6 (00:14→20:17)
[2020-09-17] MEDS: Dexmedetomidine HCl 400 MCG/100 ML MLS IVC SCH ×4 (00:35→23:05)
[2020-09-17] MEDS: FentaNYL (PF) 2,500 MCG/50 ML IV.SOLN IVC SCH ×2 (01:00→08:38)
[2020-09-17] MEDS: PrismaSATE BGK 4/2.5 5,000 ML CRRT SCH ×10 (01:10→21:07)
[2020-09-17 04:08] LABS: VBG Ionized Calcium 1.22 mmol/L (1.15-1.35)
[2020-09-17 04:10] LABS: Eosinophils % 0.7 %; Mean Corpuscular Volume 102.3 fL (83.0-100.0)
[2020-09-17 04:12] LABS: Basophils # 0.1 K/mcL (0.0-0.2); Basophils % 0.6 %; Eosinophils # 0.1 K/mcL (0.0-0.6); Hematocrit 26.5 % (35.3-44.9); Hemoglobin 8.2 g/dL (11.5-15.4); Immature Granulocytes % 3.4 % (0-4); Immature Platelets 50.1 % (1.1-6.1); Lymphocytes # 1.9 K/mcL (0.6-4.6); Lymphocytes % 10.4 %; Mean Corpuscular HGB Conc 30.9 g/dL (31.6-35.5); Mean Corpuscular Hemoglobin 31.7 pg (28.0-33.3); Monocytes # 2.5 K/mcL (0.0-1.3); Monocytes % 13.4 %; Neutrophils # 13.2 K/mcL (1.6-8.9); Nucleated Red Blood Cells 6.1 /100 WBC (0); Red Blood Count 2.59 M/mcL (3.82-4.97); Red Cell Distribution Width 21.9 % (11.5-14.5); Segmented Neutrophils % 71.5 %; White Blood Count 18.4 K/mcL (4.3-11.1)
[2020-09-17 04:16] LABS: Platelet Count 79 K/mcL (140-400)
[2020-09-17 04:25] LABS: BUN/Creatinine Ratio 28 (6-26); Blood Urea Nitrogen 12 mg/dL (6-20); Calcium 10.2 mg/dL (8.6-10.3); Carbon Dioxide 29 mEq/L (23-29); Chloride 101 mEq/L (98-107); Glucose 208 mg/dL (70-105); Magnesium 1.9 mg/dL (1.6-2.6); Osmolality,Calculated 288 (280-300); Phosphorous 1.2 mg/dL (2.7-4.5); Potassium 4.3 mEq/L (3.5-5.1); Sodium 136 mEq/L (136-145); eGFR For African Americans > 60 (> 60); eGFR For Non-African Americans > 60 (> 60)
[2020-09-17] MEDS: *HR* LORazepam 2 MG/ML VIAL IVP PRN ×3 (04:40→21:10)
[2020-09-17] MEDS: Norepinephrine 4 MG/254 ML IV.SOLN IVC SCH ×2 (04:42→13:37)
[2020-09-17 04:47] LABS: Anisocytosis 3+ (Not Present); Hypochromasia Present (Not Present); Large Platelets Present (Not Present); Platelet Estimate Decreased (Normal); Polychromasia 2+ (Not Present)
[2020-09-17 05:22] LABS: ABG Base Excess 3 mEq/L (-2 to 3); ABG HCO3 30 mEq/L (21-27); ABG Oxygen Saturation 90 % (95-98); ABG PCO2 55 mmHg (35-45); ABG PH 7.34 pH Units (7.32-7.45); ABG PO2 64 mmHg (85-104); ABG TCO2 31 mEq/L (20-26); Blood Gas Modality ASSIST CONTROL; Blood Gas VT 500 cc
[2020-09-17] MEDS: *HR* Heparin 5,000 UNIT/ML VIAL SQ SCH ×2 (05:23→18:31)
[2020-09-17] MEDS: Pantoprazole 40 MG VIAL IVP SCH ×2 (05:23→18:31)
[2020-09-17] MEDS: Meropenem 1,000 MG in Water for inj. (sterile) 20 ML IVP SCH ×2 (08:30→15:48)
[2020-09-17] MEDS: Chlorhexidine Rinse 15 ML MOUTHWASH MM SCH ×2 (08:31→20:13)
[2020-09-17] MEDS: Micafungin 100 MG in 0.9 % Sodium Chloride Mini Bag 100 ML IVPB SCH (08:36)
[2020-09-17] MEDS: Albumin 25% 25gram/100mL 25 GM/100 ML IV.SOLN IVPB SCH ×2 (09:44→15:48)
[2020-09-17 10:14] LABS: VBG Ionized Calcium 1.21 mmol/L (1.15-1.35)
[2020-09-17] MEDS: Artificial Tears SOLN 15 ML BOTTLE BOTH EYES SCH ×3 (11:29→20:13)
[2020-09-17 11:58] LABS: Hematocrit 24.3 % (35.3-44.9); Hemoglobin 7.3 g/dL (11.5-15.4)
[2020-09-17] MEDS ORDERED: Clinimix E 5%-20% SOLUTION 2,000 ML with MVI, adult with vitamin K 10 ML IVC SCH (17:00)
[2020-09-17 18:19] LABS: VBG Ionized Calcium 1.08 mmol/L (1.15-1.35)
[2020-09-17 18:26] LABS: Hematocrit 30.9 % (35.3-44.9); Hemoglobin 9.6 g/dL (11.5-15.4)
[2020-09-17 20:17] LABS: VBG Ionized Calcium 1.07 mmol/L (1.15-1.35)
[2020-09-17 22:12] LABS: VBG Ionized Calcium 1.11 mmol/L (1.15-1.35)
[2020-09-18] MEDS: Artificial Tears SOLN 15 ML BOTTLE BOTH EYES SCH ×7 (00:04→23:17)
[2020-09-18] MEDS: Insulin LISPRO 300 UNITS/3 ML VIAL SUBQ SCH ×7 (00:04→23:31)
[2020-09-18] MEDS: Meropenem 1,000 MG in Water for inj. (sterile) 20 ML IVP SCH ×4 (00:05→23:17)
[2020-09-18] MEDS: Ipratropium/Albuterol Neb 3 ML IH SCH ×7 (00:13→23:10)
[2020-09-18 00:22] LABS: VBG Ionized Calcium 1.03 mmol/L (1.15-1.35)
[2020-09-18] MEDS: FentaNYL (PF) 2,500 MCG/50 ML IV.SOLN IVC SCH ×2 (01:09→13:00)
[2020-09-18] MEDS: PrismaSATE BGK 4/2.5 5,000 ML CRRT SCH ×2 (02:08)
[2020-09-18] MEDS: Norepinephrine 4 MG/254 ML IV.SOLN IVC SCH ×2 (03:23→09:40)
[2020-09-18 03:33] LABS: VBG Ionized Calcium 1.03 mmol/L (1.15-1.35)
[2020-09-18 03:34] LABS: Mean Corpuscular HGB Conc 30.8 g/dL (31.6-35.5)
[2020-09-18 03:36] LABS: Hematocrit 32.8 % (35.3-44.9); Hemoglobin 10.1 g/dL (11.5-15.4); Immature Platelets 54.2 % (1.1-6.1); Mean Corpuscular Hemoglobin 30.4 pg (28.0-33.3); Mean Corpuscular Volume 98.8 fL (83.0-100.0); Nucleated Red Blood Cells 19.4 /100 WBC (0); Red Blood Count 3.32 M/mcL (3.82-4.97); Red Cell Distribution Width 22.6 % (11.5-14.5); White Blood Count 19.8 K/mcL (4.3-11.1)
[2020-09-18 03:42] LABS: Platelet Count 83 K/mcL (140-400)
[2020-09-18 03:53] LABS: BUN/Creatinine Ratio 36 (6-26); Blood Urea Nitrogen 16 mg/dL (6-20); Calcium 11.2 mg/dL (8.6-10.3); Carbon Dioxide 27 mEq/L (23-29); Chloride 99 mEq/L (98-107); Glucose 202 mg/dL (70-105); Magnesium 2.2 mg/dL (1.6-2.6); Osmolality,Calculated 295 (280-300); Phosphorous 2.7 mg/dL (2.7-4.5); Sodium 139 mEq/L (136-145); eGFR For African Americans > 60 (> 60); eGFR For Non-African Americans > 60 (> 60)
[2020-09-18 04:24] LABS: Anisocytosis 3+ (Not Present); Eosinophils # 0.4 K/mcL (0.0-0.6); Lymphocytes # 2.4 K/mcL (0.6-4.6); Macrocytosis Present (Not Present); Monocytes # 0.8 K/mcL (0.0-1.3); Neutrophils # 14.7 K/mcL (1.6-8.9); Polychromasia 1+ (Not Present)
[2020-09-18 04:25] LABS: Large Platelets Present (Not Present); Platelet Estimate Decreased (Normal); Reactive Lymphocytes Present (Not Present); Toxic Vacuolation Present (Not Present)
[2020-09-18 04:47] LABS: ABG Base Excess -2 mEq/L (-2 to 3); ABG HCO3 26 mEq/L (21-27); ABG Oxygen Saturation 93 % (95-98); ABG PCO2 58 mmHg (35-45); ABG PH 7.26 pH Units (7.32-7.45); ABG PO2 78 mmHg (85-104); ABG TCO2 28 mEq/L (20-26); Blood Gas Modality ASSIST CONTROL; Blood Gas VT 500 cc
[2020-09-18] MEDS: Pantoprazole 40 MG VIAL IVP SCH ×2 (05:44→17:18)
[2020-09-18] MEDS: *HR* Heparin 5,000 UNIT/ML VIAL SQ SCH ×2 (05:47→06:45)
[2020-09-18] MEDS: Dexmedetomidine HCl 400 MCG/100 ML MLS IVC SCH ×3 (06:03→19:22)
[2020-09-18] MEDS ORDERED: Albumin 25% 25gram/100mL 25 GM/100 ML IV.SOLN IVPB ONE (06:18)
[2020-09-18 06:26] LABS: VBG Ionized Calcium 1.11 mmol/L (1.15-1.35)
[2020-09-18] MEDS ORDERED: *HR* Heparin 5,000 UNIT/ML VIAL ONE (06:26)
[2020-09-18 06:55] LABS: Hematocrit 32.5 % (35.3-44.9); Hemoglobin 9.9 g/dL (11.5-15.4)
[2020-09-18] MEDS ORDERED: Vancomycin 500 MG in 0.9 % Sodium Chloride Mini Bag 100 ML IVPB ONE (08:30)
[2020-09-18] MEDS: Micafungin 100 MG in 0.9 % Sodium Chloride Mini Bag 100 ML IVPB SCH (08:35)
[2020-09-18] MEDS: Albumin 25% 25gram/100mL 25 GM/100 ML IV.SOLN IVPB SCH ×2 (08:36→15:58)
[2020-09-18] MEDS: Chlorhexidine Rinse 15 ML MOUTHWASH MM SCH ×2 (08:37→20:47)
[2020-09-18] MEDS ORDERED: 0.9 % Sodium Chloride 500 ML IVC ONE ×2 (10:28→13:21)
[2020-09-18] MEDS: Phenylephrine 10 MG in 0.9 % Sodium Chloride 250 ML IVC SCH ×4 (11:01→17:52)
[2020-09-18] MEDS ORDERED: *HR* Heparin 5,000 UNIT/ML VIAL IVP ONE (11:15)
[2020-09-18] MEDS ORDERED: *HR* Heparin 5,000 UNIT/ML VIAL IVP PRN ×2 (11:15)
[2020-09-18] MEDS ORDERED: Heparin 25,000UNIT/250ML 1/2NS 25,000 UNIT/250 ML IV.SOLN IVC SCH (11:15)
[2020-09-18] MEDS ORDERED: Isovue-370 500 ML BOTTLE IVP ONE ×2 (11:15→16:16)
[2020-09-18] MEDS: Acetaminophen IV 500 MG/50 ML BAG IVPB PRN (12:50)
[2020-09-18 14:01] LABS: Hematocrit 25.7 % (35.3-44.9); Immature Platelets 48.2 % (1.1-6.1); Mean Corpuscular HGB Conc 31.1 g/dL (31.6-35.5); Mean Corpuscular Volume 99.6 fL (83.0-100.0); Nucleated Red Blood Cells 18.9 /100 WBC (0); Platelet Count 104 K/mcL (140-400); Red Blood Count 2.58 M/mcL (3.82-4.97); Red Cell Distribution Width 21.5 % (11.5-14.5)
[2020-09-18 14:04] LABS: INR 1.9; Prothrombin Time 21.8 Seconds (9.4-12.1)
[2020-09-18 14:08] LABS: White Blood Count 31.5 K/mcL (4.3-11.1)
[2020-09-18 14:37] LABS: Albumin 5.2 g/dL (3.5-5.7); Albumin/Globulin Ratio 3.3 (1.1-2.2); Bilirubin,Direct 1.4 mg/dL (0.0-0.2); Bilirubin,Indirect 1.2 mg/dL (0.0-1.0); Bilirubin,Total 2.6 mg/dL (0.3-1.0); Globulin 1.6 g/dL (2.4-3.5); Total Protein 6.8 g/dL (6.4-8.9)
[2020-09-18 14:51] LABS: Eosinophils # 0.6 K/mcL (0.0-0.6); Lymphocytes # 8.8 K/mcL (0.6-4.6); Neutrophils # 10.1 K/mcL (1.6-8.9); Platelet Estimate Decreased (Normal); Stomatocytes 2+ (Not Present)
[2020-09-18 15:16] LABS: Hematocrit 24.5 % (35.3-44.9); Hemoglobin 7.6 g/dL (11.5-15.4); Immature Platelets 49.7 % (1.1-6.1); Nucleated Red Blood Cells 16.4 /100 WBC (0); Red Blood Count 2.45 M/mcL (3.82-4.97); Red Cell Distribution Width 21.7 % (11.5-14.5)
[2020-09-18 15:23] LABS: Platelet Count 94 K/mcL (140-400)
[2020-09-18 15:26] LABS: White Blood Count 32.3 K/mcL (4.3-11.1)
[2020-09-18 16:11] LABS: Adenovirus Not Detected (Not Detect); Bordetella Pertussis Not Detected (Not Detect); Chlamydophila pneumoniae Not Detected (Not Detect); Coronavirus 229E Not Detected (Not Detect); Coronavirus HKU1 Not Detected (Not Detect); Coronavirus NL63 Not Detected (Not Detect); Coronavirus OC43 Not Detected (Not Detect); Human Metapneumovirus Not Detected (Not Detect); Human Rhinovirus/Enterovirus Not Detected (Not Detect); Influenza A Subtype 2009 H1 Not Detected (Not Detect); Influenza B Not Detected (Not Detect); Mycoplasma pneumoniae Not Detected (Not Detect); Parainfluenza Virus 1 Not Detected (Not Detect); Parainfluenza Virus 2 Not Detected (Not Detect); Parainfluenza Virus 3 Not Detected (Not Detect); Parainfluenza Virus 4 Not Detected (Not Detect); Respiratory Syncytial Virus Not Detected (Not Detect); SARS-CoV-2 Not Detected (Not Detect)
[2020-09-18 16:14] LABS: Lymphocytes # 12.9 K/mcL (0.6-4.6); Monocytes # 1.9 K/mcL (0.0-1.3); Neutrophils # 12.9 K/mcL (1.6-8.9)
[2020-09-18 16:15] LABS: Large Platelets Present (Not Present); Reactive Lymphocytes Present (Not Present); Smudge Cells Present (Not Present)
[2020-09-18 16:16] LABS: Platelet Estimate Decreased (Normal)
[2020-09-18] MEDS ORDERED: Clinimix E 5%-20% SOLUTION 2,000 ML with MVI, adult with vitamin K 10 ML IVC SCH (17:00)
[2020-09-18] MEDS: Phenylephrine 50 MG in 0.9 % Sodium Chloride 250 ML IVC SCH (19:41)
[2020-09-18 21:22] LABS: Hematocrit 28.6 % (35.3-44.9); Hemoglobin 8.9 g/dL (11.5-15.4); Immature Platelets 51.6 % (1.1-6.1); Mean Corpuscular HGB Conc 31.1 g/dL (31.6-35.5); Mean Corpuscular Volume 99.7 fL (83.0-100.0); Nucleated Red Blood Cells 19.5 /100 WBC (0); Red Blood Count 2.87 M/mcL (3.82-4.97); Red Cell Distribution Width 19.9 % (11.5-14.5)
[2020-09-18 21:26] LABS: Platelet Count 95 K/mcL (140-400); White Blood Count 39.5 K/mcL (4.3-11.1)
[2020-09-18 21:48] LABS: Lymphocytes # 19.8 K/mcL (0.6-4.6); Monocytes # 2.4 K/mcL (0.0-1.3); Neutrophils # 16.6 K/mcL (1.6-8.9)
[2020-09-18 21:49] LABS: Large Platelets Present (Not Present); Reactive Lymphocytes Present (Not Present); Smudge Cells Present (Not Present)
[2020-09-18 21:50] LABS: Platelet Estimate Decreased (Normal); Polychromasia 1+ (Not Present)
[2020-09-19] MEDS ORDERED: Acetaminophen IV 500 MG/50 ML BAG IVPB ONE (00:30)
[2020-09-19] MEDS: Phenylephrine 50 MG in 0.9 % Sodium Chloride 250 ML IVC SCH ×5 (00:34→23:13)
[2020-09-19] MEDS ORDERED: Acetaminophen IV 1,000 MG/100 ML BAG IVPB ONE (00:45)
[2020-09-19] MEDS: Dexmedetomidine HCl 400 MCG/100 ML MLS IVC SCH ×4 (01:14→23:36)
[2020-09-19] MEDS: FentaNYL (PF) 2,500 MCG/50 ML IV.SOLN IVC SCH ×2 (01:30→20:06)
[2020-09-19] MEDS: Ipratropium/Albuterol Neb 3 ML IH SCH ×6 (03:30→23:29)
[2020-09-19 04:00] LABS: Hematocrit 28.9 % (35.3-44.9); Immature Platelets 52.5 % (1.1-6.1); Mean Corpuscular HGB Conc 31.1 g/dL (31.6-35.5); Mean Corpuscular Hemoglobin 30.9 pg (28.0-33.3); Mean Corpuscular Volume 99.3 fL (83.0-100.0); Nucleated Red Blood Cells 24.7 /100 WBC (0); Platelet Count 102 K/mcL (140-400); Red Blood Count 2.91 M/mcL (3.82-4.97); Red Cell Distribution Width 20.9 % (11.5-14.5)
[2020-09-19 04:03] LABS: INR 1.7; Prothrombin Time 19.8 Seconds (9.4-12.1)
[2020-09-19 04:06] LABS: Activated Partial Thrombo Time 37.4 Seconds (26.0-36.0)
[2020-09-19 04:12] LABS: Albumin 4.5 g/dL (3.5-5.7); Albumin/Globulin Ratio 3.2 (1.1-2.2); Bilirubin,Indirect 0.8 mg/dL (0.0-1.0); Bilirubin,Total 2.8 mg/dL (0.3-1.0); Calcium 9.8 mg/dL (8.6-10.3); Globulin 1.4 g/dL (2.4-3.5); Phosphorous 4.2 mg/dL (2.7-4.5); Potassium 5.8 mEq/L (3.5-5.1); Total Protein 5.9 g/dL (6.4-8.9)
[2020-09-19 04:26] LABS: ABG Base Excess -11 mEq/L (-2 to 3); ABG HCO3 16 mEq/L (21-27); ABG Oxygen Saturation 92 % (95-98); ABG PCO2 40 mmHg (35-45); ABG PH 7.23 pH Units (7.32-7.45); ABG PO2 74 mmHg (85-104); ABG TCO2 18 mEq/L (20-26); Blood Gas VT 500 cc
[2020-09-19] MEDS: Artificial Tears SOLN 15 ML BOTTLE BOTH EYES SCH ×6 (04:36→23:35)
[2020-09-19] MEDS: Insulin LISPRO 300 UNITS/3 ML VIAL SUBQ SCH ×6 (04:39→23:43)
[2020-09-19 04:43] LABS: Lymphocytes # 1.6 K/mcL (0.6-4.6); Monocytes # 0.8 K/mcL (0.0-1.3); Neutrophils # 28.1 K/mcL (1.6-8.9)
[2020-09-19 04:44] LABS: Anisocytosis 1+ (Not Present); Platelet Estimate Decreased (Normal); Poikilocytosis 1+ (Not Present)
[2020-09-19 04:45] LABS: Tear Drop Cells 1+ (Not Present)
[2020-09-19] MEDS: Pantoprazole 40 MG VIAL IVP SCH ×2 (04:53→17:25)
[2020-09-19] MEDS: Norepinephrine 4 MG/254 ML IV.SOLN IVC SCH (06:08)
[2020-09-19 07:08] LABS: Calcium 9.8 mg/dL (8.6-10.3); Potassium 5.1 mEq/L (3.5-5.1)
[2020-09-19] MEDS: Meropenem 1,000 MG in Water for inj. (sterile) 20 ML IVP SCH ×2 (08:21→20:34)
[2020-09-19] MEDS: Micafungin 100 MG in 0.9 % Sodium Chloride Mini Bag 100 ML IVPB SCH (08:24)
[2020-09-19] MEDS: Chlorhexidine Rinse 15 ML MOUTHWASH MM SCH ×2 (08:24→20:34)
[2020-09-19] MEDS: Albumin 25% 25gram/100mL 25 GM/100 ML IV.SOLN IVPB SCH ×2 (08:58→16:15)
[2020-09-19 12:50] LABS: Mean Corpuscular Hemoglobin 32.7 pg (28.0-33.3)
[2020-09-19 12:52] LABS: Hemoglobin 8.4 g/dL (11.5-15.4); Mean Corpuscular HGB Conc 32.3 g/dL (31.6-35.5); Mean Corpuscular Volume 101.2 fL (83.0-100.0); Nucleated Red Blood Cells 33.8 /100 WBC (0); Red Blood Count 2.57 M/mcL (3.82-4.97); Red Cell Distribution Width 21.6 % (11.5-14.5)
[2020-09-19 13:18] LABS: Platelet Count 95 K/mcL (140-400)
[2020-09-19 13:24] LABS: White Blood Count 40.8 K/mcL (4.3-11.1)
[2020-09-19 14:00] LABS: Eosinophils # 0.8 K/mcL (0.0-0.6); Lymphocytes # 3.3 K/mcL (0.6-4.6); Monocytes # 2.5 K/mcL (0.0-1.3); Neutrophils # 28.6 K/mcL (1.6-8.9)
[2020-09-19 14:01] LABS: Anisocytosis 3+ (Not Present); Large Platelets Present (Not Present); Platelet Estimate Decreased (Normal); Reactive Lymphocytes Present (Not Present)
[2020-09-19 14:02] LABS: Polychromasia 1+ (Not Present)
[2020-09-19] MEDS ORDERED: DAPTOmycin 350 MG in 0.9 % Sodium Chloride 100 ML IVPB SCH (16:00)
[2020-09-19] MEDS ORDERED: Clinimix 5%-20% SOLUTION 2,000 ML with MVI, adult with vitamin K 10 ML, Sodium Phosph... IVC SCH (17:00)
[2020-09-19 19:35] LABS: Hemoglobin 7.5 g/dL (11.5-15.4)
[2020-09-19 19:37] LABS: Hematocrit 23.6 % (35.3-44.9); Immature Platelets 54.9 % (1.1-6.1); Mean Corpuscular HGB Conc 31.8 g/dL (31.6-35.5); Mean Corpuscular Hemoglobin 31.9 pg (28.0-33.3); Mean Corpuscular Volume 100.4 fL (83.0-100.0); Nucleated Red Blood Cells 44.2 /100 WBC (0); Red Blood Count 2.35 M/mcL (3.82-4.97); Red Cell Distribution Width 21.3 % (11.5-14.5)
[2020-09-19 19:39] LABS: Platelet Count 86 K/mcL (140-400)
[2020-09-19 19:41] LABS: White Blood Count 43.7 K/mcL (4.3-11.1)
[2020-09-19 20:11] LABS: Lymphocytes # 9.6 K/mcL (0.6-4.6); Monocytes # 1.8 K/mcL (0.0-1.3); Neutrophils # 23.6 K/mcL (1.6-8.9); Platelet Estimate Slight Decrease (Normal); Polychromasia 1+ (Not Present); Reactive Lymphocytes Present (Not Present); Smudge Cells Present (Not Present); Toxic Granulation Present (Not Present)
[2020-09-19 20:12] LABS: Large Platelets Present (Not Present)
[2020-09-19 20:13] LABS: Anisocytosis 2+ (Not Present); Poikilocytosis 2+ (Not Present)
[2020-09-19] MEDS: Calcium Chloride 4,000 MG in 0.9 % Sodium Chloride 1,000 ML CRRT SCH (20:39)
[2020-09-19 20:51] LABS: Calcium 10.4 mg/dL (8.6-10.3); Potassium 5.8 mEq/L (3.5-5.1)
[2020-09-20 03:02] LABS: VBG Ionized Calcium 1.34 mmol/L (1.15-1.35)
[2020-09-20 03:31] LABS: Albumin 4.3 g/dL (3.5-5.7); Albumin/Globulin Ratio 2.7 (1.1-2.2); Bilirubin,Direct 2.1 mg/dL (0.0-0.2); Bilirubin,Indirect 1.2 mg/dL (0.0-1.0); Bilirubin,Total 3.3 mg/dL (0.3-1.0); Globulin 1.6 g/dL (2.4-3.5); Total Protein 5.9 g/dL (6.4-8.9)
[2020-09-20] MEDS: Ipratropium/Albuterol Neb 3 ML IH SCH ×3 (03:32→11:28)
[2020-09-20] MEDS: Dexmedetomidine HCl 400 MCG/100 ML MLS IVC SCH ×2 (03:58→10:39)
[2020-09-20] MEDS: Insulin LISPRO 300 UNITS/3 ML VIAL SUBQ SCH ×3 (03:59→12:59)
[2020-09-20] MEDS: Artificial Tears SOLN 15 ML BOTTLE BOTH EYES SCH ×3 (03:59→11:08)
[2020-09-20 04:38] LABS: ABG Base Excess -20 mEq/L (-2 to 3); ABG HCO3 10 mEq/L (21-27); ABG Oxygen Saturation 95 % (95-98); ABG PCO2 36 mmHg (35-45); ABG PH 7.03 pH Units (7.32-7.45); ABG PO2 105 mmHg (85-104); ABG TCO2 11 mEq/L (20-26); Blood Gas Modality ASSIST CONTROL; Blood Gas VT 500 cc
[2020-09-20] MEDS ORDERED: Sodium Bicarbonate 150 MEQ in D5% in Water 1,000 ML IVC SCH (04:45)
[2020-09-20 05:02] LABS: Hematocrit 23.7 % (35.3-44.9); Hemoglobin 7.7 g/dL (11.5-15.4); Immature Platelets 53.8 % (1.1-6.1); Mean Corpuscular HGB Conc 32.5 g/dL (31.6-35.5); Mean Corpuscular Hemoglobin 33.8 pg (28.0-33.3); Mean Corpuscular Volume 103.9 fL (83.0-100.0); Nucleated Red Blood Cells 58.8 /100 WBC (0); Red Blood Count 2.28 M/mcL (3.82-4.97)
[2020-09-20 05:06] LABS: White Blood Count 53.4 K/mcL (4.3-11.1)
[2020-09-20 05:07] LABS: Platelet Count 90 K/mcL (140-400)
[2020-09-20 05:23] LABS: Albumin 4.2 g/dL (3.5-5.7); Albumin/Globulin Ratio 2.6 (1.1-2.2); Bilirubin,Total 3.2 mg/dL (0.3-1.0); Calcium 10.6 mg/dL (8.6-10.3); Globulin 1.6 g/dL (2.4-3.5); Magnesium 2.4 mg/dL (1.6-2.6); Potassium 6.4 mEq/L (3.5-5.1); Total Protein 5.8 g/dL (6.4-8.9)
[2020-09-20 05:37] LABS: Eosinophils # 1.1 K/mcL (0.0-0.6); Large Platelets Present (Not Present); Lymphocytes # 10.7 K/mcL (0.6-4.6); Monocytes # 3.2 K/mcL (0.0-1.3); Neutrophils # 25.6 K/mcL (1.6-8.9); Platelet Estimate Slight Decrease (Normal); Smudge Cells Present (Not Present)
[2020-09-20 05:38] LABS: Anisocytosis 2+ (Not Present); Poikilocytosis 1+ (Not Present); Polychromasia 1+ (Not Present)
[2020-09-20] MEDS: Pantoprazole 40 MG VIAL IVP SCH (06:05)
[2020-09-20] MEDS: Phenylephrine 50 MG in 0.9 % Sodium Chloride 250 ML IVC SCH (07:52)
[2020-09-20] MEDS: Chlorhexidine Rinse 15 ML MOUTHWASH MM SCH (08:08)
[2020-09-20] MEDS: Meropenem 1,000 MG in Water for inj. (sterile) 20 ML IVP SCH (08:08)
[2020-09-20] MEDS: Micafungin 100 MG in 0.9 % Sodium Chloride Mini Bag 100 ML IVPB SCH (08:08)
[2020-09-20] MEDS: Albumin 25% 25gram/100mL 25 GM/100 ML IV.SOLN IVPB SCH (08:08)
[2020-09-20] MEDS: FentaNYL (PF) 2,500 MCG/50 ML IV.SOLN IVC SCH (08:45)
[2020-09-20 11:18] LABS: Creatine Kinase 375 Units/L (30-223); Triglycerides 919 mg/dL (< 150)
[2020-09-20 11:23] LABS: Blood Gas VT 500 cc; VBG HCO3 10 mEq/L (21-27); VBG PCO2 35 mmHg (41-51); VBG PH 7.05 pH Units (7.32-7.42); VBG PO2 96 mmHg (25-50)
[2020-09-20] MEDS ORDERED: Atropine 1% Opth Drops 100 DROP/5 ML BOTTLE SL PRN (15:09)
[2020-09-20] MEDS ORDERED: *HR* LORazepam 2 MG/ML VIAL IVP PRN (15:09)
[2020-09-20 15:57] VITALS: BP 81/51
[2020-09-20] MEDS ORDERED: Clinimix 5%-20% SOLUTION 2,000 ML with MVI, adult with vitamin K 10 ML, Sodium Acetat... IVC SCH (17:00)
== END 2020-09-20 17:00 | disposition expired | DRG 710 ==
LOC: EMEROOARM 12:37 → 3ANU 12:37 → SUATTDRO 18:11 → 3ANU 19:11 → SUATTDRO 09-04 15:27 → ICNU 09-08 14:54
PROVIDERS: ADMIT Surgery; ATTEND Internal Medicine